=== PATIENT | female | born 1945 | race African-American/Black ===

== ENCOUNTER 2016-06-14 01:08 | Inpatient (IN) | payer OTHER ==
[~2016-06-14] VITALS: Ht 160 cm; Wt 105.7 kg
[~2016-06-14 01:08] MED LIST: AMLODIPINE BESY10 M1 PO; ASPIRIN EC81 M1 PO; FERROUS SULFAT325 M3 PO; HYDROCHLOROTHIA25 M1 PO; LISINOPRIL40 M1 PO; PLAQUENIL200 M1 PO; POTASSIUM CHLO20 ME2 PO; PREDNISONE5 M1 PO
[2016-06-14] MEDS ORDERED: MIRALAX17 G1 PO (11:10)
[2016-06-14] MEDS ORDERED: COLACE100 M1 PO (11:10)
[2016-06-14] MEDS ORDERED: DILAUDID2 M1 PO (11:10)
[2016-06-14] MEDS ORDERED: ELIQUIS2.5 M1 PO (11:10)
[2016-06-14] MEDS ORDERED: MS CONTIN15 M2 PO (11:10)
--- NOTE | 2016-06-14 11:16 | Patient Discharge Instructions ---
Discharge Instructions General Discharge Information You were seen/treated for: RIGHT KNEE PAIN You had these procedures: RIGHT TOTAL KNEE REPLACEMENT Watch for these problems: FEVER GREATER THAN 101.5, INCREASED SWELLING, REDNESS OR DRAINAGE FROM INCISION.iNCREASING PAIN OR INABILITY TO AMBULATE Do not soak the wound: No Daily wet to dry dressings: No No bath, but you may shower: Yes Other wound care: KEEP WOUND/ DRESSING ASHLEY Diet Continue normal diet: Yes Recommended Diet: Regular Activity Full Activity/No Limits: Yes (WEIGHT BEAR TOLERATED) Activity Self Limited: No Pounds, do NOT lift more than: 10 Activity Limited to: Weight bear as tolerated Acute Coronary Syndrome Inclusion Criteria At DC or during hospital stay patient has or had the following: ACS DIAGNOSIS No Discharge Core Measures Meds if any: Prescribed or Continued at Discharge Meds if any: NOT Prescribed or Continued at Discharge Congestive Heart Failure Inclusion Criteria At DC or during hospital stay patient has or had the following: CHF DIAGNOSIS No Discharge Core Measures Meds if any: Prescribed or Continued at Discharge Meds if any: NOT Prescribed or Continued at Discharge Cerebrovascular accident Inclusion Criteria At DC or during hospital stay patient has or had the following: CVA/TIA Diagnosis No Discharge Core Measures Meds if any: Prescribed or Continued at Discharge Meds if any: NOT Prescribed or Continued at Discharge Venous thromboembolism Inclusion Criteria VTE Diagnosis No VTE Type NONE VTE Confirmed by (Test) NONE Discharge Core Measures - Per Current guidelines, there needs to be overlap - treatment for the first 5 days of Warfarin therapy. - If discharged on Warfarin prior to 5 days of - overlap therapy, the patient will need to be - assessed for post discharge needs including - *Post discharge parental anticoagulation - *Warfarin and/or parental anticoagulation education - *Follow up date to check INR post discharge At least 5 days overlap therapy as Inpatient No Meds if any: Prescribed or Continued at Discharge Warfarin No Note: Overlap Therapy is Warfarin and Anticoagulant Meds if any: NOT Prescribed or Continued at Discharge
--- NOTE | 2016-06-14 11:26 | Admission Core Measures ---
Admission Meds I reviewed the following Meds: Current Medications Sig/Robbin Start time Last Medication Dose Stop Time Status Admin Acetaminophen 975 MG ONCE 06/14 0000 NR (Tylenol) 06/14 235 Amlodipine Besylate 10 MG DAILY 06/15 1000 AC (Norvasc) Ferrous Sulfate 325 MG DAILY 06/15 1000 AC (Feosol) Hydrochlorothiazide 25 MG DAILY 06/15 1000 AC (Hydrodiuril) Hydroxychloroquine 200 MG DAILY 06/15 1000 AC Sulfate (Plaquenil 200MG Tab) Lisinopril 40 MG DAILY 06/15 1000 AC (Prinivil) Oxycodone HCl 10 MG ONCE 06/14 0000 NR (Roxicodone) 06/14 235 Potassium Chloride 20 MEQ DAILY 06/15 1000 AC (K-Dur) Prednisone 5 MG DAILY 06/15 1000 AC Ropivacaine 500 ML ONCE ONE 06/14 0930 AC (NAROPIN) 06/16 0309 ON-Q Ball 1 BAG Acute Coronary Syndrome Inclusion Criteria ACS Diagnosis No Inpatient Core Measures LDL Reminder: If No, please order W/I first 24hr of stay Congestive Heart Failure Inclusion Criteria CHF Diagnosis No Cerebrovascular accident Inclusion Criteria CVA/TIA Diagnosis No Inpatient Core Measures Bedside Swallow Eval Reminder: If BSE failed, place ST order Antithrombotic Reminder: Order Antithrombotic Medication by end of day 2 Antithrombotic Reminder: Document Reason Antithrombotic Not ordered by end of day 2 AFIB/Flutter Reminder: If Present, add to problem list AFIB/Flutter Reminder: Order Anticoag Medication for pts with AFIB/Flutter Atherosclerosis Reminder: If Present, add to problem list LDL Reminder: If No, please order W/I first 24hr of stay PT Order Reminder: If No, please order Venous thromboembolism Inpatient Core Measures VTE Risk Factors: Age > 40, Surgery No [facility] VTE prophylaxis d/t No contraindications No VTE Pharm Prophylaxis d/t No contraindications Inclusion Criteria - Per Current guidelines, there needs to be overlap - treatment for the first 5 days of Warfarin therapy. - Parenteral Anticoagulation (IV or SC) needs to be - given along with Warfarin therapy. VTE Diagnosis No VTE Type NONE VTE Confirmed by (Test) NONE Problem List As ranked by this Provider includes Assessment & Plan 1. Unilateral primary osteoarthritis, right knee HOME MEDS Home Med List Amlodipine Besylate 10 MG TABLET 1 TAB PO DAILY HTN (Reported) Apixaban (Eliquis) 2.5 MG TABLET 1 TAB PO BID ANTICOAGULATION Aspirin (Ecotrin*) 81 MG TABLET.DR 1 TAB PO DAILY PROPHO (Reported) Docusate Sodium (Colace) 100 MG CAPSULE 1 TAB PO BID CONSTIPATION Ferrous Sulfate 325 MG (65 MG IRON) TABLET 1 TAB PO DAILY ANEMIA (Reported) Hydrochlorothiazide 25 MG TABLET 1 TAB PO DAILY HTN (Reported) Hydromorphone HCl (Dilaudid) 2 MG TABLET 1-2 TAB PO EVERY 4 HRS PRN NEEDED FOR PAIN Hydroxychlorquine (Plaquenil) 200 MG TABLET 1 TAB PO DAILY LUPUS (Reported) Lisinopril 40 MG TABLET 1 TAB PO DAILY HTN (Reported) Morphine Sulfate (Ms Contin) 15 MG TABLET.ER 1 TAB PO BID PRN NEEDED FOR PAIN Polyethylene Glycol 3350 (Miralax) 17 GRAM POWD.PACK 1 PAC PO DAILY CONSTIPATION Potassium Chloride 20 MEQ TAB.ER.PRT 1 TAB PO DAILY K REPLENISH (Reported) Prednisone 5 MG TABLET 1 TAB PO DAILY LUPUS (Reported)
--- NOTE | 2016-06-14 11:41 | Surgical Discharge Summary ---
Visit Information Visit Dates Admission Date: 06/14/16 Discharge Date: 06/18/16 History of Present Illness Chief Complaint: PT. PRSENTS FOR ELECTIVE R TKA FOR R KNEE PAIN Surgical History Pertinent Surgical History: non-contributory Review of Systems: SEE h&p Hospital Course Course Attending Physician: DOV ROCHE MD Primary Care Physician: ANJELICA LOYOLA Hospital Course: THIS IS 70 Y O FEMALE WHO HAS HX OF R KNEE OA AND PRESENTED FOR ELECTIVE R TKA. Pt was transferred to the general medical floor in stable condition postoperatively, but upon arrival to the floor, a rapid response was called for unresponsiveness. Pt was given narcan and cardiac workup revealed negative troponin, but reversible ischemia on stress testing. Cardiology and medicine consults were obtained. She was initially started on Eliquis for DVT prophylaxis , but experienced acute postop blood loss anemia, so Eliquis was discontinued and pt was transfused 2u of prbc's. Pt also had intermittent temps throughout her course, which eventually resolved. WBC remained stable. DVT ppx was restarted with ASA 325 BID. She had some serous drainage from her wound, but no purulence or signs of infection. On the day of discharge, she remains stable and asymptomatic from a cardiac standpoint. She was started on low dose B chuy therapy for cardioprotection. She is otherwise tolerating a diet and voiding well. Allergies: Coded Allergies: cefuroxime (From Ceftin) (Severe, HIVES 06/11/16) PER PRE-OP ORDER SHEET. -CG 06/11/16 Disposition Summary Disposition Principal Diagnosis: R KNEE UNILATERAL OA Additional Diagnosis: NONE Discharge Disposition: home health services Discharge Instructions General Discharge Information Code Status: Full Code Patient's Diet: REGULAR, ADVANCE TOLERATED Patient's Activity: AMBULATE and weight bear TOLERATED Follow-Up Instructions/Appts: F/U 6 WEEKS FROM SURGERY. Expect serous drainage. Please report any signs of purulence or erythema to MD. Medications at Discharge Discharge Medications: Stop taking the following medications: Aspirin (Ecotrin*) 81 MG TABLET.DR ORAL DAILY Continue taking these medications: Lisinopril (Lisinopril) 40 MG TABLET 1 Tablet ORAL DAILY Amlodipine Besylate (Amlodipine Besylate) 10 MG TABLET 1 Tablet ORAL DAILY Hydrochlorothiazide (Hydrochlorothiazide) 25 MG TABLET 1 Tablet ORAL DAILY Potassium Chloride (Potassium Chloride) 20 MEQ TAB.ER.PRT 1 Tablet ORAL DAILY Prednisone (Prednisone) 5 MG TABLET 1 Tablet ORAL DAILY Hydroxychlorquine (Plaquenil) 200 MG TABLET 1 Tablet ORAL DAILY Ferrous Sulfate (Ferrous Sulfate) 325 MG (65 MG IRON) TABLET 1 Tablet ORAL DAILY Start taking the following new medications: Aspirin (Aspirin*) 325 MG TABLET 1 Tablet ORAL TWICE DAILY Days = 30 No Refills Hydromorphone HCl (Dilaudid) 2 MG TABLET 1-2 Tablet ORAL EVERY 4 HRS as needed for NEEDED FOR PAIN Qty = 36 No Refills Morphine Sulfate (Ms Contin) 15 MG TABLET.ER 1 Tablet ORAL TWICE DAILY as needed for NEEDED FOR PAIN Qty = 6 No Refills Docusate Sodium (Colace) 100 MG CAPSULE 1 Tablet ORAL TWICE DAILY Qty = 14 No Refills Comments: DISCONTINUE IF DIARRHEA Polyethylene Glycol 3350 (Miralax) 17 GRAM POWD.PACK 1 Packet ORAL DAILY Qty = 7 No Refills Instructions: dissolve in water Metoprolol Tartrate (Metoprolol Tartrate) 25 MG TABLET 0.25 Tablet ORAL TWICE DAILY Qty = 15 No Refills Instructions: PLEASE TAKE 6.25 MG TWICE DAILY
[2016-06-14 14:00] VITALS: BP 114/72
--- NOTE | 2016-06-14 15:10 | PN- Orthopedic ---
Subjective Subjective: POST-OP NOTE: No complaints. Very sleepy still. Denies dizziness. No shortness of breath. No chest pains. Objective Vital Signs and I&Os pacu sheet reviewed (vss) Physical Exam: General - sleepy but arousable. comfortable. no acute distress. Lungs - clear bilaterally. no w/r/r. Cardiac - s1s2. reg. Abdomen - soft. nontender. - adams draining clear, yellow urine Extremities - warm bilaterally. no c/c/e. hemovac drain in place. dressing c/d/ i. on q in place. nvi Assessment/Plan Assessment/Plan This 70 year old female with hx htn and lupus is POD#0 s/p right total knee replacement advance diet as tolerated pain control as needed eliquis bid - dvt ppx PT eval monitor hemovac, and remove in am adams for strict i/o's, to be removed in am f/u AM labs julianne-operative ancef x 2 doses home meds ordered, including plaquenil and prednisone d/c planning in 1-2 days will d/w Core Measures/Miscellaneous Venous Thromboembolism VTE Risk Factors: Age > 40, Surgery VTE Contraindications: No Contraindications VTE Diagnosis: No VTE Type: NONE VTE Confirmed by (Test): NONE Beta Terrell Is Beta Terrell a Home Med? No Antibiotics Is Patient on Antibiotics? Yes If Yes: prophylaxis
[2016-06-14 15:30] VITALS: BP 102/68
--- NOTE | 2016-06-14 15:59 | Operative Report ---
Operative/Inv Procedure Report Surgery Date: 06/14/16 Name of Procedure: Right total knee replacement Pre-Operative Diagnosis: Primary right knee DJD Post-Operative Diagnosis: Same Estimated Blood Loss: 200 Surgeon/Client Services Manager: KALEY SADLER,DOV Davis Anesthesia: general endotracheal tube Operative/Procedure Note Note: Description of Procedure: The patient was taken to the operating room and positively identified. After induction of general anesthesia and administration of appropriate pre-operative antibiotics, the patient was positioned supine on the operating room table and all bony prominences were well padded. A well-padded pneumatic tourniquet was placed on the right upper thigh. After performing a surgical timeout, the right lower extremity was prepped and draped in the usual sterile fashion. After exsanguination with Esmarch the tourniquet was inflated to 250mm of mercury. A standard medial parapatellar approach was made to the knee. This was carried down through skin and subcutaneous tissue to the level of the fascia. Meticulous hemostasis was maintained with Bovie electrocautery. The extensor mechanism and patellar retinaculum were opened sharply and the patella was everted. The infrapatellar fat was resected in order to improve exposure. Osteophytes were trimmed from the patella and femoral condyles and the patella was re-everted and tucked laterally. A medial release was performed and the cruciate ligaments were resected. The tibia was then subluxed anteriorly. Utilizing the appropriate extra-medullary guide, the proximal tibia was trimmed perpendicular to the long axis of the tibial shaft. Attention was then turned to the femur. After opening the medullary canal, the distal femoral cut was made in 6 degrees of valgus utilizing the appropriate intra-medullary guide. The extension gap was checked and found to be appropriate. The femur was then sized and the remainder of the femoral cuts were made with a size 2 4-in-1 femoral cutting guide. The flexion gap was checked and found to be symmetric and appropriate. The knee was then trialed with a size 2 CR femoral component, a size 3 tibial component and a size 11 mm CS polyethylene insert. The patella was trimmed to accept an A 32 patella. This yielded excellent range of motion, stability and patellar tracking. All trial components were removed and the knee was copiously irrigated with sterile saline. All components were cemented into place with [place] Simplex cement. All the components were of the [place] Triathlon knee system of the above stated sizes. The knee was again irrigated after cementation. The extensor mechanism and patellar retinaculum were repaired using interrupted #1 vicryl suture. The skin was re-approximated with 2-0 vicryl and closed with hector. A sterile dressing was applied, the tourniquet was deflated, the patient was awakened and taken to the recovery room in satisfactory condition.
[2016-06-14 16:00] VITALS: BP 122/68
--- NOTE | 2016-06-14 16:00 | Event Note ---
Event Note Event Note: rapid response called for unreponsiveness. vitals: bp 102/58 p 58 o2 95% ra, blood sugar 268 she was given narcan 0.4 mg iv x 1, with some effect. ekg showed new t wave inversion. she had no complaints at the time. transferred to telemetry full set of labs ordered stat cardiology consult requested from calling for hospitalist co-management notified patient going to 109 as tele hold
[2016-06-14 17:52] LABS: ABSOLUTE BASOPHIL COUNT 0 /CUMM (0.0-0.2); ABSOLUTE EOSINOPHIL COUNT 0 /CUMM (0.0-0.7); ABSOLUTE GRANULOCYTE CT 9.5 /CUMM (1.4-6.5); ABSOLUTE LYMPH COUNT 0.3 /CUMM (1.2-3.4); ABSOLUTE MONOCYTE COUNT 0.2 /CUMM (0.10-0.60); BASOPHIL % 0 % (0.0-2.0); EOSINOPHIL % 0.1 % (0-5); HEMATOCRIT 30.1 % (37-47); MEAN CORPUSCULAR HGB 27.9 PG (27.0-31.0); MEAN CORPUSCULAR HGB CONC 32.1 G/DL (33.0-37.0); MEAN CORPUSCULAR VOLUME 86.8 FL (81.0-99.0); MEAN PLATELET VOLUME 8.7 FL (7.4-10.4); PLATELET COUNT 192 /CUMM (130-400); RBC DISTRIBUTION WIDTH 14.8 % (11.5-14.5); RED BLOOD CELL CT 3.47 /CUMM (4.20-5.40); WHITE BLOOD CELL COUNT 10.1 /CUMM (4.8-10.8)
[2016-06-14 18:00] VITALS: BP 105/64
--- NOTE | 2016-06-14 18:03 | Cons- Medical ---
General Information and HPI Consulting Request Date of Consult: 06/14/16 Requested By: DOV ROCHE MD Reason for Consult: Unresponsiveness Source of Information: patient, family History of Present Illness: Patient is a 70-year-old female with past medical history of lupus, sickle cell triat, hypertension right total knee replacement today 06/14/2016. She underwent general anesthesia and tolerated the procedure well. Postprocedure she was transferred to the general medicine floor[facility] a rapid response was called this afternoon at around 3 PM as the patient was found unresponsive in her bed. Vitals showed a temperature of 102/52,, saturation 96% on room air, pulse rate of 58 and blood sugar of 268. She was given Narcan 0.4 mg IVX 1 with improved responsiveness. Stat EKG showed some nonspecific T-wave inversions in lead V4(present on previous EKG from May 2016). As per the paperwork, patient had a systolic blood pressure of more than 200 during the procedure and she received 20 mg of IV hydralazine and 10 mg of IV metoprolol during the procedure. Patient got 2 mg of Dilaudid secondary to pain post surgery. Physical examination was positive for unresponsiveness to commands and sternal rub. Respiratory and cardiovascular examinations were unremarkable. Extremities showed a dressing over the right knee . Pulses were intact. Patient was transferred to the telemetry floor and stat labs and CAT scan of the head without contrast was ordered. Patient is currently maintained as a telemetry hold in ICU. Medical consult has been requested by the surgical team. Allergies/Medications Allergies: Coded Allergies: cefuroxime (From Ceftin) (Severe, HIVES 06/11/16) PER PRE-OP ORDER SHEET. -CG 06/11/16 Home Med List: Amlodipine Besylate 10 MG TABLET 1 TAB PO DAILY HTN (Reported) Apixaban (Eliquis) 2.5 MG TABLET 1 TAB PO BID ANTICOAGULATION Aspirin (Ecotrin*) 81 MG TABLET.DR 1 TAB PO DAILY PROPHO (Reported) Docusate Sodium (Colace) 100 MG CAPSULE 1 TAB PO BID CONSTIPATION Ferrous Sulfate 325 MG (65 MG IRON) TABLET 1 TAB PO DAILY ANEMIA (Reported) Hydrochlorothiazide 25 MG TABLET 1 TAB PO DAILY HTN (Reported) Hydromorphone HCl (Dilaudid) 2 MG TABLET 1-2 TAB PO EVERY 4 HRS PRN NEEDED FOR PAIN Hydroxychlorquine (Plaquenil) 200 MG TABLET 1 TAB PO DAILY LUPUS (Reported) Lisinopril 40 MG TABLET 1 TAB PO DAILY HTN (Reported) Morphine Sulfate (Ms Contin) 15 MG TABLET.ER 1 TAB PO BID PRN NEEDED FOR PAIN Polyethylene Glycol 3350 (Miralax) 17 GRAM POWD.PACK 1 PAC PO DAILY CONSTIPATION dissolve in water Potassium Chloride 20 MEQ TAB.ER.PRT 1 TAB PO DAILY K REPLENISH (Reported) Prednisone 5 MG TABLET 1 TAB PO DAILY LUPUS (Reported) Review of Systems Review of Systems Constitutional: Reports: malaise, weakness. EENTM: Reports: no symptoms. Cardiovascular: Reports: no symptoms. Respiratory: Reports: no symptoms. GI: Reports: no symptoms. Genitourinary: Reports: no symptoms. Musculoskeletal: Reports: joint pain (RT KNEE). Skin: Reports: no symptoms. Neurological/Psychological: Reports: no symptoms. Past History Medical History Blood Transfusion Hx: No Neurological: NONE EENT: NONE Cardiovascular: hypertension Respiratory: NONE Gastrointestinal: NONE Hepatic: NONE Renal: NONE Musculoskeletal: ARTHRITIS Psychiatric: NONE Endocrine: vitamin D deficiency Blood Disorders: DVT, LUPUS Cancer(s): NONE ENROLLMENT CLERK/Reproductive: NONE Surgical History Surgical History: non-contributory Psychosocial History Where Do You Live? Home Smoking Status: Unknown If Ever Smoked Exam & Diagnostic Data Last 24 Hrs of Vital Signs/I&O Vital Signs Date Time Temp Pulse Resp B/P Pulse O2 O2 Flow FiO2 Ox Delivery Rate 06/14 1530 50 16 102/68 90 Room Air 06/14 1400 97.1 56 16 114/72 95 Room Air Intake & Output 06/14 1600 06/14 0800 06/14 0000 Intake Total 2300 Output Total 1650 Balance 650 Intake, IV 2300 Intake, Oral 0 Number 0 Bowel Movements Output, 400 Drainage Output, Urine 1250 Physical Exam General Appearance: well developed/nourished, no apparent distress, alert, awake , anxious, comfortable Head: atraumatic, normal appearance, active bleeding Eyes: Bilateral: normal appearance, PERRL, EOMI. Ears, Nose, Throat: DRY MUCOUS MEMBRANES Neck: normal inspection, supple, full range of motion Respiratory: normal breath sounds, chest non-tender, no respiratory distress Cardiovascular: regular rate/rhythm, edema, gallop Peripheral Pulses: 2+ radial (R), 2+ radial (L) Extremities: normal inspection, normal capillary refill, normal range of motion, DRESSING OVER THE RIGHT LOWER EXTREMITY Neurologic/Psych: no motor/sensory deficits, awake, alert, oriented x 3 Last 24 Hrs of Labs/Stephen: Laboratory Tests 06/14/16 1735: Anion Gap 9, Estimated GFR > 60, BUN/Creatinine Ratio 12.2, Glucose 177 H, Phosphorus 3.7, Magnesium 1.6, Troponin I < 0.01, CBC w Diff NO MAN DIFF REQ, RBC 3.47 L, MCV 86.8, MCH 27.9, RDW 14.8 H, MPV 8.7, Gran % 94.5 H, Lymphocytes % 3.3 L, Monocytes % 2.1, Eosinophils % 0.1, Basophils % 0 L, Absolute Granulocytes 9.5 H, Absolute Lymphocytes 0.3 L, Absolute Monocytes 0.2, Absolute Eosinophils 0, Absolute Basophils 0, PUBS MCHC 32.1 L Assessment/Plan Assessment/Plan Patient is a 70-year-old female with past medical history of lupus, sickle cell triat, hypertension right total knee replacement today 06/14/2016. She underwent general anesthesia and tolerated the procedure well. Postprocedure she was transferred to the general medicine floor. Patient was found unresponsive on the [facility] floor, vitals revealed hypotension 102/58 bradycardia and T-wave inversions in lead V4 on EKG. She received Narcan 0.4 mg 1 IV with improvement in responsiveness. Patient got 2 mg of Dilaudid secondary to pain post surgery. She also received IV hydralazine 20 mg and IV metoprolol 10 mg during the procedure when her S2 systolic blood pressure was more than 200. Labs and CAT scan of the head pending EKG: SR, T wave inversions in V4( present in EKG from 05/2016) Assessment * Syncope/unresponsiveness * Status post right total knee replacement the 1 * ?T-wave inversions on EKG * Hypotension post procedure * Bradycardia * History of lupus and sickle cell trait Plan * Closely monitor the patient on telemetry * 3 sets of troponin and EKG to rule out ACS * Closely monitor for bradycardia. * Complete set of labs including CBCs and BEP * CT scan of the head without contrast to rule out acute intracranial pathology * Hold antihypertensives lisinopril, amlodipine and HCTZ for now. Try to keep her target blood pressure around 140/90. Can restart antihypertensives with holding parameters once the CAT scan results are backand stroke ruled out. * Hold aspirin and Eliquis for now * Continue patient's home medication Plaquenil and MS Contin * Continue prednisone daily * Cardiology consult with Dr. Sweeney * Echocardiogram * Continue pain control and surgical management per surgery/orthopedic * ALPS for DVT prophylaxsis Problem List: 1. Knee joint replacement status Consult Acknowledgment - Thank you for your consult request.
[2016-06-14 18:05] LABS: GRANULOCYTE % 94.5 % (42.2-75.2)
--- NOTE | 2016-06-14 19:09 | PN- Att Addend ---
Attending MD Review Statement Attending Statement Attending MD Statement: examined this patient, discuss w/resident/PA/STEAM SHOVEL OILER, agreed w/resident/PA/STEAM SHOVEL OILER, reviewed EMR data (avail) Attending Assessment/Plan: Laboratory Tests 06/14/16 1735: Anion Gap 9, Estimated GFR > 60, BUN/Creatinine Ratio 12.2, Glucose 177 H, Phosphorus 3.7, Magnesium 1.6, Troponin I < 0.01, CBC w Diff NO MAN DIFF REQ, RBC 3.47 L, MCV 86.8, MCH 27.9, RDW 14.8 H, MPV 8.7, Gran % 94.5 H, Lymphocytes % 3.3 L, Monocytes % 2.1, Eosinophils % 0.1, Basophils % 0 L, Absolute Granulocytes 9.5 H, Absolute Lymphocytes 0.3 L, Absolute Monocytes 0.2, Absolute Eosinophils 0, Absolute Basophils 0, PUBS MCHC 32.1 L Vital Signs Date Time Temp Pulse Resp B/P Pulse O2 O2 Flow FiO2 Ox Delivery Rate 06/14 1530 50 16 102/68 90 Room Air 06/14 1400 97.1 56 16 114/72 95 Room Air Patient seen and examined at bedside. Discussed with patient the care plan. Patient underwent right total knee arthroplasty today and had more than anticipated blood loss during the procedure and also during the OR patient had high blood pressure for which she was given 2 doses of IV metoprolol and also got 20 mg of IV hydralazine. Patient was then transferred out to the floor where she had a rapid response called for unresponsive episode. During the unresponsive episode patient was found to have a blood pressure of 102/52 and heart rate in 58. She was also found to have a blood sugar of 268. Patient got 2 mg of Dilaudid secondary to pain post surgery. Patient currently alert oriented 3. Currently getting echocardiogram. We will get the CT of the head to rule out any ischemia. And we will do serial neuro checks. We will also do serial troponins and monitor her on telemetry. We will also try to keep her blood pressure on the higher side around 140/90 and restart her home medicines withholding parameter. Patient did not take her blood pressure medication this morning prior to surgery which could have contributed to her high blood pressure intraoperatively and postoperatively. We will monitor her closely on telemetry and cardiology is being consulted. Dr. Sweeney from cardiology is to see the patient.
--- NOTE | 2016-06-14 19:53 | CT SCAN REPORT ---
EXAMINATION: CT HEAD WITHOUT CONTRAST CLINICAL INFORMATION: Weakness. Rule out stroke. COMPARISON: None TECHNIQUE: Contiguous axial imaging was performed from the skull base to vertex without intravenous administration of contrast. DLP: 529.16 mGy-cm FINDINGS: There is no evidence of acute intracranial hemorrhage or territorial infarction. No abnormal mass effect or midline shift is seen. Dang to white matter differentiation is well preserved. No extra-axial fluid collections are identified. There is mild parenchymal volume loss. The ventricles are normal in size. Mild to moderate chronic white matter microangiopathic changes are visible. The osseous structures and soft tissues are normal. The mastoid air cells are well aerated. There is a solitary opacified right ethmoid air cell which may be due to a retention cyst or early developing small mucocele. IMPRESSION: Mild to moderate chronic white matter microangiopathy. No acute territorial infarction. The possibility of a focal acute infarct cannot be ruled out on the basis of this study.
[2016-06-15] VITALS: BP 122/68
[2016-06-15 00:09] LABS: ABSOLUTE BASOPHIL COUNT 0 /CUMM (0.0-0.2); ABSOLUTE EOSINOPHIL COUNT 0 /CUMM (0.0-0.7); ABSOLUTE GRANULOCYTE CT 8.2 /CUMM (1.4-6.5); ABSOLUTE LYMPH COUNT 0.6 /CUMM (1.2-3.4); ABSOLUTE MONOCYTE COUNT 0.3 /CUMM (0.10-0.60); BASOPHIL % 0.1 % (0.0-2.0); EOSINOPHIL % 0.1 % (0-5); GRANULOCYTE % 89.9 % (42.2-75.2); MEAN CORPUSCULAR HGB 28.2 PG (27.0-31.0); MEAN CORPUSCULAR HGB CONC 33.1 G/DL (33.0-37.0); MEAN CORPUSCULAR VOLUME 85.1 FL (81.0-99.0); MEAN PLATELET VOLUME 9.2 FL (7.4-10.4); PLATELET COUNT 190 /CUMM (130-400); RBC DISTRIBUTION WIDTH 15.1 % (11.5-14.5); RED BLOOD CELL CT 3.28 /CUMM (4.20-5.40); WHITE BLOOD CELL COUNT 9.1 /CUMM (4.8-10.8)
--- NOTE | 2016-06-15 05:38 | PN- Orthopedic ---
Subjective Subjective: POD1. RR yesterday pm for ?unresponsiveness, now ok. denies cp/sob/f/c/n/v. hungry. denies confusion. no oob yet postop. Objective Vital Signs and I&Os Vital Signs Date Time Temp Pulse Resp B/P Pulse O2 O2 Flow FiO2 Ox Delivery Rate 06/15 0000 97.7 66 18 122/68 96 Room Air 06/14 1800 97.6 62 17 105/64 100 Room Air Room Air 06/14 1600 100 Room Air Room Air 06/14 1600 97.4 67 16 122/68 98 Room Air Room Air 06/14 1530 50 16 102/68 90 Room Air 06/14 1400 97.1 56 16 114/72 95 Room Air Intake & Output 06/15 0800 06/15 0000 06/14 1600 06/14 0800 06/14 0000 06/13 1600 Intake Total 1250 2300 Output Total 570 1650 Balance 680 650 Intake, IV 650 2300 Intake, Oral 600 0 Number 0 Bowel Movements Output, 120 400 Drainage Output, Urine 450 1250 LABS: pdg this am. Postop: hct 28(from 30), wbc 9 Physical Exam: GEN: NAD, A&Ox3 CARD: s1s2 rrr PULM: no audible wheeze ABD: soft nt EXT: rle dressig c/d/i, plantar/dorsiflexion intact/equal bl, +pedal pulses, calves soft nt. Results Last 48 Hours of Labs: Laboratory Tests 06/15 06/14 0500 2340 Chemistry Sodium (137 - 145 mmol/L) Pending 138 Potassium (3.5 - 5.1 mmol/L) Pending 4.4 Chloride (98 - 107 mmol/L) Pending 102 Carbon Dioxide (22 - 30 mmol/L) Pending 28 Anion Gap (5 - 16) Pending 8 BUN (7 - 17 mg/dL) Pending 13 Creatinine (0.5 - 1.0 mg/dL) Pending 0.8 Estimated GFR (>60 ml/min) > 60 BUN/Creatinine Ratio (7 - 25 %) Pending 16.3 Magnesium Pending Troponin I (< 0.11 ng/ml) Pending < 0.01 Hematology CBC w Diff Pending MAN DIFF ORDERED WBC (4.8 - 10.8 /CUMM) Pending 9.1 RBC (4.20 - 5.40 /CUMM) Pending 3.28 L Hgb (12.0 - 16.0 G/DL) Pending 9.3 L Hct (37 - 47 %) Pending 28.0 L MCV (81.0 - 99.0 FL) Pending 85.1 MCH (27.0 - 31.0 PG) Pending 28.2 RDW (11.5 - 14.5 %) Pending 15.1 H Plt Count (130 - 400 /CUMM) Pending 190 MPV (7.4 - 10.4 FL) Pending 9.2 Gran % (42.2 - 75.2 %) 89.9 H Lymphocytes % (20.5 - 51.1 %) 6.9 L Monocytes % (1.7 - 9.3 %) 3.0 Eosinophils % (0 - 5 %) 0.1 Basophils % (0.0 - 2.0 %) 0.1 Absolute Granulocytes (1.4 - 6.5 /CUMM) 8.2 H Absolute Lymphocytes (1.2 - 3.4 /CUMM) 0.6 L Absolute Monocytes (0.10 - 0.60 /CUMM) 0.3 Absolute Eosinophils (0.0 - 0.7 /CUMM) 0 Absolute Basophils (0.0 - 0.2 /CUMM) 0 Platelet Estimate (ADEQUATE) ADEQUATE Polychromasia 1+ Hypochromic-Microcytic 1+ PUBS MCHC (33.0 - 37.0 G/DL) Pending 33.1 06/14 06/14 06/14 1735 1730 1551 Chemistry Sodium (137 - 145 mmol/L) 140 Cancelled Potassium (3.5 - 5.1 mmol/L) 3.4 L Cancelled Chloride (98 - 107 mmol/L) 101 Cancelled Carbon Dioxide (22 - 30 mmol/L) 30 Cancelled Anion Gap (5 - 16) 9 Cancelled BUN (7 - 17 mg/dL) 11 Cancelled Creatinine (0.5 - 1.0 mg/dL) 0.9 Cancelled Estimated GFR (>60 ml/min) > 60 BUN/Creatinine Ratio (7 - 25 %) 12.2 Cancelled Glucose (65 - 99 mg/dL) 177 H Phosphorus (2.5 - 4.5 mg/dL) 3.7 Magnesium (1.6 - 2.3 mg/dL) 1.6 Troponin I (< 0.11 ng/ml) < 0.01 Cancelled Hematology CBC w Diff NO MAN DIFF REQ Cancelled WBC (4.8 - 10.8 /CUMM) 10.1 Cancelled RBC (4.20 - 5.40 /CUMM) 3.47 L Cancelled Hgb (12.0 - 16.0 G/DL) 9.7 L Cancelled Hct (37 - 47 %) 30.1 L Cancelled MCV (81.0 - 99.0 FL) 86.8 Cancelled MCH (27.0 - 31.0 PG) 27.9 Cancelled RDW (11.5 - 14.5 %) 14.8 H Cancelled Plt Count (130 - 400 /CUMM) 192 Cancelled MPV (7.4 - 10.4 FL) 8.7 Cancelled Gran % (42.2 - 75.2 %) 94.5 H Lymphocytes % (20.5 - 51.1 %) 3.3 L Monocytes % (1.7 - 9.3 %) 2.1 Eosinophils % (0 - 5 %) 0.1 Basophils % (0.0 - 2.0 %) 0 L Absolute Granulocytes (1.4 - 6.5 /CUMM) 9.5 H Absolute Lymphocytes (1.2 - 3.4 /CUMM) 0.3 L Absolute Monocytes (0.10 - 0.60 /CUMM) 0.2 Absolute Eosinophils (0.0 - 0.7 /CUMM) 0 Absolute Basophils (0.0 - 0.2 /CUMM) 0 PUBS MCHC (33.0 - 37.0 G/DL) 32.1 L Cancelled 06/14 1540 Chemistry Troponin I Cancelled Recent Imaging Studies: 06/14/16 CT head: no acute infarction Assessment/Plan Assessment/Plan 70yoF POD1 sp R TKR, tele hold in ICU following rapid response postop for unresponsiveness, workup neg other than lyte abnormalities- repleted. Currently stable. -am labs pdg - reg diet - HL IVF if labs ok and tolerating diet - prn pain meds - OOB as tolerated, PT - eliquis - ? fu cards input - DC planning - will dw attending Problem List: 1. Knee joint replacement status Core Measures/Miscellaneous Venous Thromboembolism VTE Risk Factors: Age > 40, Surgery VTE Contraindications: No Contraindications VTE Diagnosis: No VTE Type: NONE VTE Confirmed by (Test): NONE Beta Terrell Is Beta Terrell a Home Med? No Antibiotics Is Patient on Antibiotics? Yes If Yes: prophylaxis
[2016-06-15 05:39] LABS: ABSOLUTE BASOPHIL COUNT 0 /CUMM (0.0-0.2); ABSOLUTE EOSINOPHIL COUNT 0 /CUMM (0.0-0.7); ABSOLUTE GRANULOCYTE CT 7.1 /CUMM (1.4-6.5); ABSOLUTE MONOCYTE COUNT 0.6 /CUMM (0.10-0.60); BASOPHIL % 0.3 % (0.0-2.0); EOSINOPHIL % 0.1 % (0-5); GRANULOCYTE % 81.1 % (42.2-75.2); HEMATOCRIT 26.1 % (37-47); MEAN CORPUSCULAR HGB 28.3 PG (27.0-31.0); MEAN CORPUSCULAR HGB CONC 32.8 G/DL (33.0-37.0); MEAN CORPUSCULAR VOLUME 86.4 FL (81.0-99.0); MEAN PLATELET VOLUME 9.6 FL (7.4-10.4); PLATELET COUNT 177 /CUMM (130-400); RBC DISTRIBUTION WIDTH 15.2 % (11.5-14.5); RED BLOOD CELL CT 3.03 /CUMM (4.20-5.40); WHITE BLOOD CELL COUNT 8.7 /CUMM (4.8-10.8)
--- NOTE | 2016-06-15 06:44 | Event Note ---
Event Note Event Note: Results head CT noted last night. head CT results neg for acute territorial infarction; given change in mental status and sudden change in blood pressure pre/post op the patient may benefit from MRI of the head. The patient had episode of altered mental status and unresponsiveness yesterday. No history of WI or CVA in past. Denies any complaints including dizziness, lightheadedness, headache, palpitation. At the time of our interview, VSS, AAO Neck: Supple, no JVD, no carotid bruit, no lymphadenopathy. CV: RRR, no murmur. Abdomen: Normal bowel sounds, soft, NT, ND. Extremities: No lower extremity edema. Neurology: Normal speech, no facial droop, cranial nerves III-12 intact, [id number] intact, strength and motion, and reflexes intact. Patient passed bedside swallow evaluation test. Troponins remain negative. EKG remains the same. Given sudden change in patient's BP pre/post op and episode of unresponsiveness would recommend: * Formal swallow evaluation, speech, OT, PT * Continue with telemetry monitoring to rule out any arrhythmia. * Would start the patient on full dose aspirin, and a statin. * Would hold antihypertensives for permissive hypertension for the first 24-48 hours. * Would give IV fluids if blood pressure drops below 120s systolic. * Would order echocardiogram, MRI head,doppler carotid * Neurology consult * Cardiology consult Surgical team was notified. Sign out given to the morning team.
--- NOTE | 2016-06-15 07:15 | PN- Medicine Consult ---
Assessment/Plan Assessment/Plan Assessment: 70-year-old female with past medical history of lupus, sickle cell triat, hypertension right total knee replacement today 06/14/2016. She underwent general anesthesia and tolerated the procedure well. Postprocedure she was transferred to the general medicine floor. Status post the patient was found unresponsive with a blood pressure of 102/58, bradycardic, T-wave inversions on EKG before. Received 1 dose of Narcan 0.4 mg with a mild improvement in mentation. Patient had received 2 mg Dilaudid for analgesia, 20 mg IV hydralazine and 10 mg IV metoprolol for SBP 200 CT head: Mild to moderate chronic white matter microangiopathy. No acute territorial infarction. The possibility of a focal acute infarct cannot be ruled out on the basis of this study. Problem list: 1. Syncope 2. Iatrogenic-induced hypotension 3. Bradycardia 4. History of lupus and sickle cell trait Plan: 1. Syncope likely secondary to iatrogenic-induced hypotension * Was likely secondary to profound hypotension the setting of analgesia and preceding IV hydralazine * Blood pressure remained stable at this time * Continue to monitor. If recurrence of hypotension, consider stress dose with Solu-Medrol 2. Bradycardia * EKG NSR, nonspecific T-wave changes * On overnight cardiac telemetry monitoring patient did have one episode of 3 beat run * Electrolytes within normal limits * Resolved at this time. Continue to monitor 4. History of lupus and sickle cell trait * Continue her home medications * Continuing prednisone 5mg daily Problem List: 1. Unilateral primary osteoarthritis, right knee 2. Bradycardia 3. Hypotension Subjective Subjective: Interval history: This morning Mrs. Mesa denies being in any discomfort at this time. She denies any headache, blurred vision, chest pain, palpitation, shortness of breath, nausea, abdominal pain, fevers or chills at this time. Review of Systems Constitutional: Reports: see HPI. EENTM: Reports: no symptoms. Cardiovascular: Reports: no symptoms. Respiratory: Reports: no symptoms. Gastrointestinal: Reports: no symptoms. Musculoskeletal: Reports: see HPI. Objective Last 24 Hrs of Vital Signs/I&O Vital Signs Date Time Temp Pulse Resp B/P Pulse O2 O2 Flow FiO2 Ox Delivery Rate 06/15 1034 84 138/78 06/15 0800 99.6 67 18 130/78 97 Room Air 04/11 0000 97.7 66 18 122/68 96 Room Air 06/14 1800 97.6 62 17 105/64 100 Room Air Room Air 06/14 1600 100 Room Air Room Air 06/14 1600 97.4 67 16 122/68 98 Room Air Room Air 06/14 1530 50 16 102/68 90 Room Air Intake & Output 06/15 1600 06/15 0800 06/15 0000 Intake Total 1010 1250 Output Total 850 570 Balance 160 680 Intake, IV 650 650 Intake, Oral 360 600 Output, 100 120 Drainage Output, Urine 750 450 Physical Exam General Appearance: alert, comfortable Head: normal appearance Cardiovascular: regular rate/rhythm Respiratory: normal breath sounds, no respiratory distress, lungs clear Abdomen: normal bowel sounds, soft, non-tender Extremities: Right knee wrapped in a clean HOMAR bandage, no active bleeding at this time Current Medications: Current Medications Sig/Robbin Start time Last Medication Dose Route Stop Time Status Admin Acetaminophen 650 MG .STK-MED ONE 06/15 0504 DC PO 06/15 0505 Acetaminophen 650 MG Q4P PRN 06/14 1415 AC 06/15 PO 0505 Amlodipine Besylate 10 MG DAILY 06/15 1000 DC PO Amlodipine Besylate 10 MG DAILY 06/15 1000 DC PO Apixaban 2.5 MG BID 06/15 1000 AC 06/15 PO 1032 Benzocaine/Menthol 1 CARY Q2P PRN 06/14 2145 AC 06/14 PO 2356 Cefazolin Sodium 2 GM IQ8 06/14 1600 DC 06/14 N/A 1 UNIT IV 06/15 0029 2355 Dextrose/Sodium 1,000 ML .[id number] 06/14 1415 DC 06/14 Chloride IV 2355 Docusate Sodium 100 MG BID 06/14 2200 AC 06/15 PO 1032 Ferrous Sulfate 325 MG DAILY 06/15 1000 DC PO Ferrous Sulfate 325 MG DAILY 06/15 1000 AC 06/15 PO 1031 Hydrochlorothiazide 25 MG DAILY 06/15 1000 DC PO Hydrochlorothiazide 25 MG DAILY 06/15 1000 DC PO Hydromorphone HCl 2 MG Q4P PRN 06/14 1415 AC PO Hydromorphone HCl 4 MG Q4P PRN 06/14 1415 AC PO Hydroxychloroquine 200 MG DAILY 06/15 1000 DC Sulfate PO Hydroxychloroquine 200 MG DAILY 06/15 1000 AC 06/15 Sulfate PO 1032 Ketorolac 15 MG Q8P PRN 06/14 1415 AC 06/15 Tromethamine IV 06/17 1407 1403 Lisinopril 40 MG DAILY 06/15 1000 DC PO Lisinopril 40 MG DAILY 06/15 1000 AC 06/15 PO 1034 Magnesium Sulfate 2 GM ONE TIME ONE 06/14 1845 CAN IV 06/14 1846 Magnesium Sulfate 1 GM Q2H 06/14 1845 DC 06/14 Dextrose/Water 100 ML IV 06/14 2244 2134 Magnesium Sulfate 1 GM ONCE ONE 06/14 1830 CAN Dextrose/Water 100 ML IV 06/14 2229 Morphine Sulfate 2 MG Q2P PRN 06/14 1415 AC 06/15 IV 0315 Naloxone HCl 0.4 MG ONCE ONE 06/14 1600 CAN IV 06/14 1601 Naloxone HCl 0.4 MG ONCE ONE 06/14 1600 DC IV 06/14 1601 Naloxone HCl 0.4 MG ONCE ONE 06/14 1545 DC 06/14 IV 06/14 1546 1545 Omeprazole 40 MG DAILY AC 06/15 0700 AC PO Ondansetron HCl 4 MG Q6P PRN 06/14 1415 AC 06/14 IV 1448 Polyethylene Glycol 17 GM DAILY 06/15 1000 AC PO Potassium Chloride 20 MEQ DAILY 06/15 1000 DC PO Potassium Chloride 20 MEQ DAILY 06/15 1000 AC 06/15 PO 1031 Potassium Chloride 10 MEQ Q1H 06/14 1845 DC 06/14 IV 06/14 1946 2134 Potassium Chloride 40 MEQ ONCE ONE 06/14 1845 DC PO 06/14 1846 Potassium Chloride 10 MEQ ONCE ONE 06/14 1830 CAN IV 06/14 1831 Potassium Chloride 10 MEQ ONCE ONE 06/14 1830 CAN IV 06/14 1831 Potassium Chloride 40 MEQ ONCE ONE 06/14 1830 CAN PO 06/14 1831 Prednisone 5 MG DAILY 06/15 1000 DC PO Prednisone 5 MG DAILY 06/15 1000 AC 06/15 PO 1031 Promethazine HCl 12.5 MG Q6P PRN 06/14 1415 AC IV 06/21 1044 Ropivacaine 500 ML ONCE ONE 06/14 0930 AC 06/14 ON-Q Ball 1 BAG INJ 06/16 0309 1416 Sodium Chloride 1,000 ML Q13H 06/15 0745 DC IV Results Last 24 Hrs Lab/Stephen Results: Laboratory Tests 06/15/16 0500: Anion Gap 10, Estimated GFR > 60, BUN/Creatinine Ratio 12.2, Magnesium 2.0, Troponin I < 0.01, CBC w Diff NO MAN DIFF REQ, RBC 3.03 L, MCV 86.4, MCH 28.3, RDW 15.2 H, MPV 9.6, Gran % 81.1 H, Lymphocytes % 11.2 L, Monocytes % 7.3, Eosinophils % 0.1, Basophils % 0.3, Absolute Granulocytes 7.1 H, Absolute Lymphocytes 1.0 L, Absolute Monocytes 0.6, Absolute Eosinophils 0, Absolute Basophils 0, PUBS MCHC 32.8 L 06/14/16 2340: Anion Gap 8, Estimated GFR > 60, BUN/Creatinine Ratio 16.3, Troponin I < 0.01, CBC w Diff MAN DIFF ORDERED, RBC 3.28 L, MCV 85.1, MCH 28.2, RDW 15.1 H, MPV 9.2, Gran % 89.9 H, Lymphocytes % 6.9 L, Monocytes % 3.0, Eosinophils % 0.1, Basophils % 0.1, Absolute Granulocytes 8.2 H, Absolute Lymphocytes 0.6 L, Absolute Monocytes 0.3, Absolute Eosinophils 0, Absolute Basophils 0, Platelet Estimate ADEQUATE, Polychromasia 1+, Hypochromic-Microcytic 1+, PUBS MCHC 33.1 06/14/16 1735: Anion Gap 9, Estimated GFR > 60, BUN/Creatinine Ratio 12.2, Glucose 177 H, Phosphorus 3.7, Magnesium 1.6, Troponin I < 0.01, CBC w Diff NO MAN DIFF REQ, RBC 3.47 L, MCV 86.8, MCH 27.9, RDW 14.8 H, MPV 8.7, Gran % 94.5 H, Lymphocytes % 3.3 L, Monocytes % 2.1, Eosinophils % 0.1, Basophils % 0 L, Absolute Granulocytes 9.5 H, Absolute Lymphocytes 0.3 L, Absolute Monocytes 0.2, Absolute Eosinophils 0, Absolute Basophils 0, PUBS MCHC 32.1 L 06/14/16 1730: CBC w Diff Cancelled, WBC Cancelled, RBC Cancelled, Hgb Cancelled, Hct Cancelled , MCV Cancelled, MCH Cancelled, RDW Cancelled, Plt Count Cancelled, MPV Cancelled, PUBS MCHC Cancelled 06/14/16 1551: Sodium Cancelled, Potassium Cancelled, Chloride Cancelled, Carbon Dioxide Cancelled, Anion Gap Cancelled, BUN Cancelled, Creatinine Cancelled, BUN/ Creatinine Ratio Cancelled, Troponin I Cancelled 06/14/16 1540: Troponin I Cancelled Microbiology 06/14 1600 UPPER RESP: Surveillance Culture - RECD 06/14 1600 GI: Surveillance Culture - RECD
[2016-06-15 08:00] VITALS: BP 130/78
--- NOTE | 2016-06-15 08:26 | Cons- Cardiology ---
See Addendum MIREYA LARA MD 06/15/16 0825: General Information and HPI Consulting Request Date of Consult: 06/15/16 Requested By: DOV ROCHE MD Reason for Consult: Post-op hypotension Source of Information: patient Exam Limitations: no limitations History of Present Illness: Mrs. Mesa is a 70-year-old lady with a medical history of hypertension and lupus diagnosed 3 years ago currently on prednisone and hydroxychloroquine. She underwent a right total knee replacement yesterday. Intraoperatively her blood pressure spiked to greater than 220, she received pushes of IV hydralazine and Lopressor. She also had an intraoperative blood loss of roughly 400 mL. Postoperatively she was found to be hypotensive. A rapid response was called on the floor. She was given Narcan with mild relief in her mentation for the medical record. She was transferred to the ICU was a telemetry hold secondary to the fact that her EKG had some lateral lead T-wave inversions have since resolved. A cardiology consultation was requested for postop hypotension. I saw and evaluated the patient, she is resting comfortably in hospital bed. At present she denies any chest pain, shortness of breath, nausea, vomiting, diarrhea. Her only complaint is postoperative right knee pain. She had a 3 beat run this morning around 6:30 AM. Denies any personal history of coronary artery disease, myocardial infarction or short. States that she does have a family history of coronary artery disease and a couple years ago her older brother underwent a CABG. Allergies/Medications Allergies: Coded Allergies: cefuroxime (From Ceftin) (Severe, HIVES 06/11/16) PER PRE-OP ORDER SHEET. -CG 06/11/16 Home Med List: Amlodipine Besylate 10 MG TABLET 1 TAB PO DAILY HTN (Reported) Apixaban (Eliquis) 2.5 MG TABLET 1 TAB PO BID ANTICOAGULATION Aspirin (Ecotrin*) 81 MG TABLET.DR 1 TAB PO DAILY PROPHO (Reported) Docusate Sodium (Colace) 100 MG CAPSULE 1 TAB PO BID CONSTIPATION Ferrous Sulfate 325 MG (65 MG IRON) TABLET 1 TAB PO DAILY ANEMIA (Reported) Hydrochlorothiazide 25 MG TABLET 1 TAB PO DAILY HTN (Reported) Hydromorphone HCl (Dilaudid) 2 MG TABLET 1-2 TAB PO EVERY 4 HRS PRN NEEDED FOR PAIN Hydroxychlorquine (Plaquenil) 200 MG TABLET 1 TAB PO DAILY LUPUS (Reported) Lisinopril 40 MG TABLET 1 TAB PO DAILY HTN (Reported) Morphine Sulfate (Ms Contin) 15 MG TABLET.ER 1 TAB PO BID PRN NEEDED FOR PAIN Polyethylene Glycol 3350 (Miralax) 17 GRAM POWD.PACK 1 PAC PO DAILY CONSTIPATION dissolve in water Potassium Chloride 20 MEQ TAB.ER.PRT 1 TAB PO DAILY K REPLENISH (Reported) Prednisone 5 MG TABLET 1 TAB PO DAILY LUPUS (Reported) Review of Systems Review of Systems Constitutional: Reports: see HPI. Past History Medical History Blood Transfusion Hx: No Neurological: NONE EENT: NONE Cardiovascular: hypertension Respiratory: NONE Gastrointestinal: NONE Hepatic: NONE Renal: NONE Musculoskeletal: ARTHRITIS Psychiatric: NONE Endocrine: vitamin D deficiency Blood Disorders: DVT, LUPUS Cancer(s): NONE GROUP MANAGING DIRECTOR/Reproductive: NONE Surgical History Surgical History: non-contributory Psychosocial History Where Do You Live? Home Smoking Status: Unknown If Ever Smoked Exam & Diagnostic Data Vital Signs and I&O Vital Signs Date Time Temp Pulse Resp B/P Pulse O2 O2 Flow FiO2 Ox Delivery Rate 06/15 0000 97.7 66 18 122/68 96 Room Air 06/14 1800 97.6 62 17 105/64 100 Room Air Room Air 06/14 1600 100 Room Air Room Air 06/14 1600 97.4 67 16 122/68 98 Room Air Room Air 06/14 1530 50 16 102/68 90 Room Air 06/14 1400 97.1 56 16 114/72 95 Room Air Intake & Output 06/15 1600 11 0800 06/15 0000 06/14 1600 06/14 0800 06/14 0000 Intake Total 1010 1250 2300 Output Total 778 708 4919 Balance 160 680 650 Intake, IV 412 576 7941 Intake, Oral 360 600 0 Number 0 Bowel Movements Output, 100 120 400 Drainage Output, Urine 634 317 5566 Physical Exam General Appearance: well developed/nourished, no apparent distress, alert, awake , comfortable Eyes: Bilateral: normal appearance, PERRL, EOMI. Ears, Nose, Throat: normal pharynx, normal ENT inspection, hearing grossly normal Respiratory: normal breath sounds, chest non-tender, no respiratory distress Cardiovascular: regular rate/rhythm Gastrointestinal: normal bowel sounds, soft, non-tender, no organomegaly Back: normal inspection, normal range of motion Extremities: Right knee in dry sterile dressing Labs/Stephen Results: Laboratory Tests 06/15 06/14 0500 2340 Chemistry Sodium (137 - 145 mmol/L) 139 138 Potassium (3.5 - 5.1 mmol/L) 3.9 4.4 Chloride (98 - 107 mmol/L) 102 102 Carbon Dioxide (22 - 30 mmol/L) 27 28 Anion Gap (5 - 16) 10 8 BUN (7 - 17 mg/dL) 11 13 Creatinine (0.5 - 1.0 mg/dL) 0.9 0.8 Estimated GFR (>60 ml/min) > 60 > 60 BUN/Creatinine Ratio (7 - 25 %) 12.2 16.3 Magnesium (1.6 - 2.3 mg/dL) 2.0 Troponin I (< 0.11 ng/ml) < 0.01 < 0.01 Hematology CBC w Diff NO MAN DIFF REQ MAN DIFF ORDERED WBC (4.8 - 10.8 /CUMM) 8.7 9.1 RBC (4.20 - 5.40 /CUMM) 3.03 L 3.28 L Hgb (12.0 - 16.0 G/DL) 8.6 L 9.3 L Hct (37 - 47 %) 26.1 L 28.0 L MCV (81.0 - 99.0 FL) 86.4 85.1 MCH (27.0 - 31.0 PG) 28.3 28.2 RDW (11.5 - 14.5 %) 15.2 H 15.1 H Plt Count (130 - 400 /CUMM) 177 190 MPV (7.4 - 10.4 FL) 9.6 9.2 Gran % (42.2 - 75.2 %) 81.1 H 89.9 H Lymphocytes % (20.5 - 51.1 %) 11.2 L 6.9 L Monocytes % (1.7 - 9.3 %) 7.3 3.0 Eosinophils % (0 - 5 %) 0.1 0.1 Basophils % (0.0 - 2.0 %) 0.3 0.1 Absolute Granulocytes (1.4 - 6.5 /CUMM) 7.1 H 8.2 H Absolute Lymphocytes (1.2 - 3.4 /CUMM) 1.0 L 0.6 L Absolute Monocytes (0.10 - 0.60 /CUMM) 0.6 0.3 Absolute Eosinophils (0.0 - 0.7 /CUMM) 0 0 Absolute Basophils (0.0 - 0.2 /CUMM) 0 0 Platelet Estimate (ADEQUATE) ADEQUATE Polychromasia 1+ Hypochromic-Microcytic 1+ PUBS MCHC (33.0 - 37.0 G/DL) 32.8 L 33.1 06/14 06/14 06/14 1735 1730 1551 Chemistry Sodium (137 - 145 mmol/L) 140 Cancelled Potassium (3.5 - 5.1 mmol/L) 3.4 L Cancelled Chloride (98 - 107 mmol/L) 101 Cancelled Carbon Dioxide (22 - 30 mmol/L) 30 Cancelled Anion Gap (5 - 16) 9 Cancelled BUN (7 - 17 mg/dL) 11 Cancelled Creatinine (0.5 - 1.0 mg/dL) 0.9 Cancelled Estimated GFR (>60 ml/min) > 60 BUN/Creatinine Ratio (7 - 25 %) 12.2 Cancelled Glucose (65 - 99 mg/dL) 177 H Phosphorus (2.5 - 4.5 mg/dL) 3.7 Magnesium (1.6 - 2.3 mg/dL) 1.6 Troponin I (< 0.11 ng/ml) < 0.01 Cancelled Hematology CBC w Diff NO MAN DIFF REQ Cancelled WBC (4.8 - 10.8 /CUMM) 10.1 Cancelled RBC (4.20 - 5.40 /CUMM) 3.47 L Cancelled Hgb (12.0 - 16.0 G/DL) 9.7 L Cancelled Hct (37 - 47 %) 30.1 L Cancelled MCV (81.0 - 99.0 FL) 86.8 Cancelled MCH (27.0 - 31.0 PG) 27.9 Cancelled RDW (11.5 - 14.5 %) 14.8 H Cancelled Plt Count (130 - 400 /CUMM) 192 Cancelled MPV (7.4 - 10.4 FL) 8.7 Cancelled Gran % (42.2 - 75.2 %) 94.5 H Lymphocytes % (20.5 - 51.1 %) 3.3 L Monocytes % (1.7 - 9.3 %) 2.1 Eosinophils % (0 - 5 %) 0.1 Basophils % (0.0 - 2.0 %) 0 L Absolute Granulocytes (1.4 - 6.5 /CUMM) 9.5 H Absolute Lymphocytes (1.2 - 3.4 /CUMM) 0.3 L Absolute Monocytes (0.10 - 0.60 /CUMM) 0.2 Absolute Eosinophils (0.0 - 0.7 /CUMM) 0 Absolute Basophils (0.0 - 0.2 /CUMM) 0 PUBS MCHC (33.0 - 37.0 G/DL) 32.1 L Cancelled 06/14 1540 Chemistry Troponin I Cancelled Diagnostic Data EKG Results Rate 68, KS 164, QRS 82, QTC 451 Sinus rhythm, borderline T-wave flattening in leads 3, aVF, aVL Other Results PATIENT: DONAL MESA PRESENT AGE: 70 PATIENT ACCOUNT NO: [id number] : 47 LOCATION: [facility] ORDERING PHYSICIAN: DOM ROMAN MD SERVICE DATE: 06/14/16 EXAM TYPE: CAT - CT HEAD WO IV CONTRAST EXAMINATION: CT HEAD WITHOUT CONTRAST CLINICAL INFORMATION: Weakness. Rule out stroke. COMPARISON: None TECHNIQUE: Contiguous axial imaging was performed from the skull base to vertex without intravenous administration of contrast. DLP: 529.16 mGy-cm FINDINGS: There is no evidence of acute intracranial hemorrhage or territorial infarction. No abnormal mass effect or midline shift is seen. Dang to white matter differentiation is well preserved. No extra-axial fluid collections are identified. There is mild parenchymal volume loss. The ventricles are normal in size. Mild to moderate chronic white matter microangiopathic changes are visible. The osseous structures and soft tissues are normal. The mastoid air cells are well aerated. There is a solitary opacified right ethmoid air cell which may be due to a retention cyst or early developing small mucocele. IMPRESSION: Mild to moderate chronic white matter microangiopathy. No acute territorial infarction. The possibility of a focal acute infarct cannot be ruled out on the basis of this study. DICTATED BY: CARLOS BAINS MD DATE/TIME DICTATED:06/14/161947 [employer] MEDIA SPECIALIST:ALYSSA DATE/TIME TRANSCRIBED:06/14/161947 CONFIDENTIAL, DO NOT COPY WITHOUT APPROPRIATE AUTHORIZATION. <Electronically signed in Other Vendor System> SIGNED BY: CARLOS BAINS MD 1950 Assessment/Plan Assessment/Plan Assessment- 1. Post op hypertension; multifactorial secondary to intraoperative blood loss and subsequently receiving IV hydralazine and beta chuy pushes 2. Non specific borderline lateral T-wave flattening 3. Lupus 4. HTN 5. Negative troponins X 3 Plan- - Continue telemetry monitoring for now - DC IV fluids as patient is tolerating diet by mouth, her blood pressure this morning was 130 systolic - Start her home dose of lisinopril, if blood pressure remains persistently high can then reintroduce Norvasc and hydrochlorothiazide at home doses - Echocardiogram has been done, it will be read later on today - EKG did have some lateral lead T-wave changes - NPO after midnight for presantine stress test in the morning Consult Acknowledgment - Thank you for your consult request. KYLIE SADLER,KAYCEE Maldonado 06/15/16 2013: Assessment/Plan Assessment/Plan Attending Addendum: The patient was seen and examined by me and all available data, including ECGs, were personally reviewed by myself. The case was discussed with the patient and her as well as the medical housestaff. I agree with the plan as outlined above. Further plans after the PTN nuclear stress test results are reviewed. Consult Acknowledgment - Thank you for your consult request.
--- NOTE | 2016-06-15 13:00 | PN- Att Addend ---
See Addendum Attending Addendum Attending Brief Note Patient seen and examined this morning, was feeling slightly better. She denies feeling any further dizziness. Denies any chest pain or shortness of breath. No acute issues overnight. Vital Signs Date Time Temp Pulse Resp B/P Pulse O2 O2 Flow FiO2 Ox Delivery Rate 06/15 1034 84 138/78 06/15 0800 99.6 67 18 130/78 97 Room Air 06/15 0000 97.7 66 18 122/68 96 Room Air 06/14 1800 97.6 62 17 105/64 100 Room Air Room Air 06/14 1600 100 Room Air Room Air 06/14 1600 97.4 67 16 122/68 98 Room Air Room Air 06/14 1530 50 16 102/68 90 Room Air 06/14 1400 97.1 56 16 114/72 95 Room Air on exam; aox3, nad. cv; s1, s2, rrr resp; clear abd; soft, nt, bs+ ext; no edema. right knee is warpped in angel wrap. Neuro: Nonfocal. Laboratory Tests 06/15 06/14 0500 2340 Chemistry Sodium (137 - 145 mmol/L) 139 138 Potassium (3.5 - 5.1 mmol/L) 3.9 4.4 Chloride (98 - 107 mmol/L) 102 102 Carbon Dioxide (22 - 30 mmol/L) 27 28 Anion Gap (5 - 16) 10 8 BUN (7 - 17 mg/dL) 11 13 Creatinine (0.5 - 1.0 mg/dL) 0.9 0.8 Estimated GFR (>60 ml/min) > 60 > 60 BUN/Creatinine Ratio (7 - 25 %) 12.2 16.3 Magnesium (1.6 - 2.3 mg/dL) 2.0 Troponin I (< 0.11 ng/ml) < 0.01 < 0.01 Hematology CBC w Diff NO MAN DIFF REQ MAN DIFF ORDERED WBC (4.8 - 10.8 /CUMM) 8.7 9.1 RBC (4.20 - 5.40 /CUMM) 3.03 L 3.28 L Hgb (12.0 - 16.0 G/DL) 8.6 L 9.3 L Hct (37 - 47 %) 26.1 L 28.0 L MCV (81.0 - 99.0 FL) 86.4 85.1 MCH (27.0 - 31.0 PG) 28.3 28.2 RDW (11.5 - 14.5 %) 15.2 H 15.1 H Plt Count (130 - 400 /CUMM) 177 190 MPV (7.4 - 10.4 FL) 9.6 9.2 Gran % (42.2 - 75.2 %) 81.1 H 89.9 H Lymphocytes % (20.5 - 51.1 %) 11.2 L 6.9 L Monocytes % (1.7 - 9.3 %) 7.3 3.0 Eosinophils % (0 - 5 %) 0.1 0.1 Basophils % (0.0 - 2.0 %) 0.3 0.1 Absolute Granulocytes (1.4 - 6.5 /CUMM) 7.1 H 8.2 H Absolute Lymphocytes (1.2 - 3.4 /CUMM) 1.0 L 0.6 L Absolute Monocytes (0.10 - 0.60 /CUMM) 0.6 0.3 Absolute Eosinophils (0.0 - 0.7 /CUMM) 0 0 Absolute Basophils (0.0 - 0.2 /CUMM) 0 0 Platelet Estimate (ADEQUATE) ADEQUATE Polychromasia 1+ Hypochromic-Microcytic 1+ PUBS MCHC (33.0 - 37.0 G/DL) 32.8 L 33.1 06/14 06/14 06/14 1735 1730 1551 Chemistry Sodium (137 - 145 mmol/L) 140 Cancelled Potassium (3.5 - 5.1 mmol/L) 3.4 L Cancelled Chloride (98 - 107 mmol/L) 101 Cancelled Carbon Dioxide (22 - 30 mmol/L) 30 Cancelled Anion Gap (5 - 16) 9 Cancelled BUN (7 - 17 mg/dL) 11 Cancelled Creatinine (0.5 - 1.0 mg/dL) 0.9 Cancelled Estimated GFR (>60 ml/min) > 60 BUN/Creatinine Ratio (7 - 25 %) 12.2 Cancelled Glucose (65 - 99 mg/dL) 177 H Phosphorus (2.5 - 4.5 mg/dL) 3.7 Magnesium (1.6 - 2.3 mg/dL) 1.6 Troponin I (< 0.11 ng/ml) < 0.01 Cancelled Hematology CBC w Diff NO MAN DIFF REQ Cancelled WBC (4.8 - 10.8 /CUMM) 10.1 Cancelled RBC (4.20 - 5.40 /CUMM) 3.47 L Cancelled Hgb (12.0 - 16.0 G/DL) 9.7 L Cancelled Hct (37 - 47 %) 30.1 L Cancelled MCV (81.0 - 99.0 FL) 86.8 Cancelled MCH (27.0 - 31.0 PG) 27.9 Cancelled RDW (11.5 - 14.5 %) 14.8 H Cancelled Plt Count (130 - 400 /CUMM) 192 Cancelled MPV (7.4 - 10.4 FL) 8.7 Cancelled Gran % (42.2 - 75.2 %) 94.5 H Lymphocytes % (20.5 - 51.1 %) 3.3 L Monocytes % (1.7 - 9.3 %) 2.1 Eosinophils % (0 - 5 %) 0.1 Basophils % (0.0 - 2.0 %) 0 L Absolute Granulocytes (1.4 - 6.5 /CUMM) 9.5 H Absolute Lymphocytes (1.2 - 3.4 /CUMM) 0.3 L Absolute Monocytes (0.10 - 0.60 /CUMM) 0.2 Absolute Eosinophils (0.0 - 0.7 /CUMM) 0 Absolute Basophils (0.0 - 0.2 /CUMM) 0 PUBS MCHC (33.0 - 37.0 G/DL) 32.1 L Cancelled 06/14 1540 Chemistry Troponin I Cancelled Assessment and recommendations: 70-year-old female with past medical history significant for lupus, sickle cell triat, hypertension status post right knee replacement postop day #1 today. She was transferred to ICU yesterday as a telemetry hold secondary to unresponsive episode. Her blood pressure was also not controlled. CT head was negative. EKG showed some nonspecific T-wave changes. Postoperative care as per Ortho. Blood pressure this morning is much better. Patient has been resumed on her lisinopril. Patient has been seen by cardiology. Her troponins 3 is negative. Please clarify with cardiology about the plan. Patient is now awake and talking and denies any weakness or any speech difficulty. Neuro exam is negative. She has been resumed back on her prednisone. Continue other current medications. DVT prophylaxis: I will defer this to orthopedic.
[2016-06-15 16:00] VITALS: BP 124/76
--- NOTE | 2016-06-15 17:02 | ECHOCARDIOGRAM REPORT ---
DONAL BRAY Age: 70 : 1945 Gender: F Exam Date: 06/14/2016 18:47 Exam Location: [facility] Ht (in): 63 Wt (lb): 233 BSA: 2.22 BP: 102 / 68 Ordering Physician: ELVIA CALHOUN MD Referring Physician: Sonia Sweeney MD Technologist: Madai Vazquez KEYANNA Room Number: 109 Indications: STRUCTURAL HEART DISEASE Rhythm: Sinus Technical Quality: Good FINDINGS Left Ventricle Normal size left ventricle. No obvious regional wall motion abnormalities. Left ventricular wall thickness increased. Normal left ventricular ejection fraction estimated at 60-65%. Right Ventricle Right ventricle at upper limits of normal. Right Atrium Normal right atrial size. Left Atrium Mild left atrial dilatation. Mitral Valve Mitral valve thickened. Trace to mild mitral regurgitation. Aortic Valve Trileaflet aortic valve. Focal thickening of the aortic valve cusps. No aortic stenosis. No aortic regurgitation. Tricuspid Valve Tricuspid valve not well visualized, grossly normal. Moderate tricuspid regurgitation. Right ventricular systolic pressure estimated at 20 mmHg. Pulmonic Valve Pulmonic valve not well visualized, grossly normal. Pericardium No pericardial effusion. Great Vessels Aortic root and proximal ascending aorta not well visualized, grossly normal. CONCLUSIONS 1. Minimal to mild aortic sclerosis is present with no valvular stenosis or insufficiency. 2. Mitral leaflet thickening is present with minimal to mild mitral insufficiency and mild left atrial enlargement. 3. There is no pericardial fluid present. 4. The left ventricular chamber size is normal with mild concentric hypertrophy and a normal ejection fraction with no resting wall motion abnormalities. 5. The right heart chambers are upper normal in size. Moderate eccentric tricuspid insufficiency is present with no evidence of pulmonary hypertension 6. The descending thoracic aorta appears prominent but was not optimally visualized. If clinically indicated, a CT scan of the chest would be better suited to assess the anatomy of the thoracic aorta. Sonia Sweeney M.D. (Electronically Signed) Final Date: 15 June 2016 17:01 MEASUREMENTS (Male / Female) Normal Values 2D ECHO LV Diastolic Diameter PLAX 4.4 cm 4.2 - 5.9 / 3.9 - 5.3 cm LV Systolic Diameter PLAX 2.5 cm 2.1 - 4.0 cm LV Fractional Shortening PLAX 43.2 % 25 - 46 % LV Ejection Fraction 2D Teich 74.5 % IVS Diastolic Thickness 1.3 cm LVPW Diastolic Thickness 1.3 cm LV Relative Wall Thickness 0.6 RV Internal Dim ED PLAX 3.0 cm 1.9 - 3.8 cm LVOT Diameter 2.2 cm Aortic Root Diameter 3.0 cm LA Systolic Diameter LX 3.1 cm 3.0 - 4.0 / 2.7 - 3.8 cm LA Volume 42.9 cm 18 - 58 / 22 - 52 cm LA Volume Index 19.3 cm/m 16 - 28 cm/m Ascending Aorta Diameter 3.1 cm DOPPLER AV Peak Velocity 160.0 cm/s AV Peak Gradient 10.2 mmHg AV Mean Velocity 110.0 cm/s AV Mean Gradient 6.0 mmHg AV Velocity Time Integral 36.6 cm LVOT Peak Velocity 103.0 cm/s LVOT Peak Gradient 4.2 mmHg LVOT Mean Velocity 69.1 cm/s LVOT Mean Gradient 2.0 mmHg LVOT Velocity Time Integral 21.6 cm LVOT Stroke Volume 82.1 cm AV Area Cont Eq vti 2.2 cm AV Area Cont Eq pk 2.4 cm MV Peak Velocity 75.6 cm/s MV Peak Gradient 2.3 mmHg MV Mean Velocity 41.9 cm/s MV Mean Gradient 1.0 mmHg Mitral E Point Velocity 65.2 cm/s Mitral A Point Velocity 54.3 cm/s Mitral E to A Ratio 1.2 MV PHT Velocity 72.5 cm/s MV Deceleration [place] 220.0 cm/s MV Pressure Half Time 98.9 ms MV Area PHT 2.2 cm MV Deceleration Time 204.0 ms TR Peak Velocity 252.0 cm/s TR Peak Gradient 25.4 mmHg Right Atrial Pressure 5.0 mmHg Pulmonary Artery Systolic Pressu 30.4 mmHg Right Ventricular Systolic Press 30.4 mmHg PV Peak Velocity 81.6 cm/s PV Peak Gradient 2.7 mmHg PV Mean Velocity 54.7 cm/s PV Mean Gradient 1.0 mmHg PV Velocity Time Integral 21.1 cm LV E' Lateral Velocity 10.9 cm/s Mitral E to LV E' Lateral Ratio 6.0 LV E' Septal Velocity 15.9 cm/s Mitral E to LV E' Septal Ratio 4.1
[2016-06-15 22:00] VITALS: BP 170/70
--- NOTE | 2016-06-15 23:40 | RADIOLOGY REPORT ---
EXAMINATION: CHEST 1 VIEW CLINICAL INFORMATION: Fever. COMPARISON: None. TECHNIQUE: An AP view of the chest is provided. FINDINGS: The cardiac silhouette is not enlarged. The mediastinal and hilar contours are unremarkable. There are neither pleural effusions nor pneumothoraces. There are no consolidations. The osseous structures are unremarkable. IMPRESSION: No evidence for acute disease.
[2016-06-16 00:25] VITALS: BP 147/75
--- NOTE | 2016-06-16 05:53 | PN- Orthopedic ---
Subjective Subjective: Patient without significant complaints. She has mild pain in the right knee that is controlled with pain medication. She has been in physical therapy yesterday. She had a fever last night however no acute complaints. Chest x-ray is normal, urinalysis pending, labs pending for this morning. Objective Vital Signs and I&Os Vital Signs Date Time Temp Pulse Resp B/P Pulse O2 O2 Flow FiO2 Ox Delivery Rate 06/16 0025 99.8 147/75 06/16 0003 88 170/70 06/16 0002 100.0 06/15 2327 101.8 06/15 2324 101.8 06/15 2200 101.8 102 20 170/70 97 06/15 2132 102.7 06/15 1600 99.9 82 22 124/76 96 Room Air 06/15 1034 84 138/78 06/15 08 99.6 67 18 130/78 97 Room Air Intake & Output 06/16 0800 06/16 0000 06/15 1600 06/15 0800 06/15 0000 06/14 1600 Intake Total 240 1035 1010 1250 2300 Output Total 400 1600 160 981 7190 Balance -160 -565 160 680 650 Intake, IV 75 610 446 7303 Intake, Oral 240 960 360 600 0 Number 0 0 Bowel Movements Output, 100 120 400 Drainage Output, Urine 400 1600 271 454 0570 Physical Exam: Well-developed well-nourished no apparent distress. HEENT: Atraumatic, extraocular motion intact Neck: Supple, no lymphadenopathy Respiratory: No respiratory distress Extremities: No edema RIGHT lower extremity dressing in place, Incision line is clean dry and intact with minimal bloody drainage. No signs of infection. Mild joint effusion Range of motion is 0-60. Compression wrap in place. Dressing removed and dry sterile dressing applied. ALPS in place Neurovascularly intact distally Bilateral calves are supple, nontender. Neuro: Alert and oriented x3 Psych: Mood affect normal, normal memory normal judgment. Skin: Warm and dry, no rash on exposed skin Results Last 48 Hours of Labs: Laboratory Tests 06/16 06/16 06/15 0508 0500 0500 Chemistry Sodium (137 - 145 mmol/L) Pending 139 Potassium (3.5 - 5.1 mmol/L) Pending 3.9 Chloride (98 - 107 mmol/L) Pending 102 Carbon Dioxide (22 - 30 mmol/L) Pending 27 Anion Gap (5 - 16) Pending 10 BUN (7 - 17 mg/dL) Pending 11 Creatinine (0.5 - 1.0 mg/dL) Pending 0.9 Estimated GFR (>60 ml/min) > 60 BUN/Creatinine Ratio (7 - 25 %) Pending 12.2 Phosphorus Pending Magnesium (1.6 - 2.3 mg/dL) Pending 2.0 Troponin I (< 0.11 ng/ml) < 0.01 Hematology CBC w Diff Pending NO MAN DIFF REQ WBC (4.8 - 10.8 /CUMM) Pending 8.7 RBC (4.20 - 5.40 /CUMM) Pending 3.03 L Hgb (12.0 - 16.0 G/DL) Pending 8.6 L Hct (37 - 47 %) Pending 26.1 L MCV (81.0 - 99.0 FL) Pending 86.4 MCH (27.0 - 31.0 PG) Pending 28.3 RDW (11.5 - 14.5 %) Pending 15.2 H Plt Count (130 - 400 /CUMM) Pending 177 MPV (7.4 - 10.4 FL) Pending 9.6 Gran % (42.2 - 75.2 %) 81.1 H Lymphocytes % (20.5 - 51.1 %) 11.2 L Monocytes % (1.7 - 9.3 %) 7.3 Eosinophils % (0 - 5 %) 0.1 Basophils % (0.0 - 2.0 %) 0.3 Absolute Granulocytes (1.4 - 6.5 /CUMM) 7.1 H Absolute Lymphocytes (1.2 - 3.4 /CUMM) 1.0 L Absolute Monocytes (0.10 - 0.60 /CUMM) 0.6 Absolute Eosinophils (0.0 - 0.7 /CUMM) 0 Absolute Basophils (0.0 - 0.2 /CUMM) 0 PUBS MCHC (33.0 - 37.0 G/DL) Pending 32.8 L Urines Urine Color Pending Urine Clarity Pending Urine pH Pending Ur Specific [place] Pending Urine Protein Pending Urine Ketones Pending Urine Nitrite Pending Urine Bilirubin Pending Urine Urobilinogen Pending Ur Leukocyte Esterase Pending Ur Microscopic Pending Urine Hemoglobin Pending Urine Glucose Pending 06/14 06/14 2340 1735 Chemistry Sodium (137 - 145 mmol/L) 138 140 Potassium (3.5 - 5.1 mmol/L) 4.4 3.4 L Chloride (98 - 107 mmol/L) 102 101 Carbon Dioxide (22 - 30 mmol/L) 28 30 Anion Gap (5 - 16) 8 9 BUN (7 - 17 mg/dL) 13 11 Creatinine (0.5 - 1.0 mg/dL) 0.8 0.9 Estimated GFR (>60 ml/min) > 60 > 60 BUN/Creatinine Ratio (7 - 25 %) 16.3 12.2 Glucose (65 - 99 mg/dL) 177 H Phosphorus (2.5 - 4.5 mg/dL) 3.7 Magnesium (1.6 - 2.3 mg/dL) 1.6 Troponin I (< 0.11 ng/ml) < 0.01 < 0.01 Hematology CBC w Diff MAN DIFF ORDERED NO MAN DIFF REQ WBC (4.8 - 10.8 /CUMM) 9.1 10.1 RBC (4.20 - 5.40 /CUMM) 3.28 L 3.47 L Hgb (12.0 - 16.0 G/DL) 9.3 L 9.7 L Hct (37 - 47 %) 28.0 L 30.1 L MCV (81.0 - 99.0 FL) 85.1 86.8 MCH (27.0 - 31.0 PG) 28.2 27.9 RDW (11.5 - 14.5 %) 15.1 H 14.8 H Plt Count (130 - 400 /CUMM) 190 192 MPV (7.4 - 10.4 FL) 9.2 8.7 Gran % (42.2 - 75.2 %) 89.9 H 94.5 H Lymphocytes % (20.5 - 51.1 %) 6.9 L 3.3 L Monocytes % (1.7 - 9.3 %) 3.0 2.1 Eosinophils % (0 - 5 %) 0.1 0.1 Basophils % (0.0 - 2.0 %) 0.1 0 L Absolute Granulocytes (1.4 - 6.5 /CUMM) 8.2 H 9.5 H Absolute Lymphocytes (1.2 - 3.4 /CUMM) 0.6 L 0.3 L Absolute Monocytes (0.10 - 0.60 /CUMM) 0.3 0.2 Absolute Eosinophils (0.0 - 0.7 /CUMM) 0 0 Absolute Basophils (0.0 - 0.2 /CUMM) 0 0 Platelet Estimate (ADEQUATE) ADEQUATE Polychromasia 1+ Hypochromic-Microcytic 1+ PUBS MCHC (33.0 - 37.0 G/DL) 33.1 32.1 L 06/14 06/14 06/14 1730 1551 1540 Chemistry Sodium Cancelled Potassium Cancelled Chloride Cancelled Carbon Dioxide Cancelled Anion Gap Cancelled BUN Cancelled Creatinine Cancelled BUN/Creatinine Ratio Cancelled Troponin I Cancelled Cancelled Hematology CBC w Diff Cancelled WBC Cancelled RBC Cancelled Hgb Cancelled Hct Cancelled MCV Cancelled MCH Cancelled RDW Cancelled Plt Count Cancelled MPV Cancelled PUBS MCHC Cancelled Assessment/Plan Assessment/Plan 70yoF POD 21 sp R TKR, tele hold in ICU following rapid response postop for unresponsiveness, abnormal EKG, cardiology following -Follow up results of urinalysis due to postoperative fever, no signs of infection noted in the operative knee -am labs pdg -Nothing by mouth this morning for stress test per cardiology, appreciate cardiology input - May resume regular diet after stress test this morning - prn pain meds - OOB as tolerated, PT - eliquis -Daily dressing changes, dry sterile dressing -Continue ALPS - Patient stable from an orthopedic perspective. Core Measures/Miscellaneous Venous Thromboembolism VTE Risk Factors: Age > 40, Surgery VTE Contraindications: No Contraindications VTE Diagnosis: No VTE Type: NONE VTE Confirmed by (Test): NONE Beta Terrell Is Beta Terrell a Home Med? No Antibiotics Is Patient on Antibiotics? Yes If Yes: prophylaxis
[2016-06-16 06:00] VITALS: BP 110/74
[2016-06-16 06:02] LABS: ABSOLUTE BASOPHIL COUNT 0 /CUMM (0.0-0.2); ABSOLUTE EOSINOPHIL COUNT 0 /CUMM (0.0-0.7); ABSOLUTE GRANULOCYTE CT 9.4 /CUMM (1.4-6.5); ABSOLUTE LYMPH COUNT 1.6 /CUMM (1.2-3.4); ABSOLUTE MONOCYTE COUNT 0.9 /CUMM (0.10-0.60); BASOPHIL % 0 % (0.0-2.0); EOSINOPHIL % 0 % (0-5); GRANULOCYTE % 79.4 % (42.2-75.2); HEMATOCRIT 24.1 % (37-47); MEAN CORPUSCULAR HGB 28.4 PG (27.0-31.0); MEAN CORPUSCULAR HGB CONC 32.8 G/DL (33.0-37.0); MEAN CORPUSCULAR VOLUME 86.5 FL (81.0-99.0); MEAN PLATELET VOLUME 9.4 FL (7.4-10.4); PLATELET COUNT 176 /CUMM (130-400); RBC DISTRIBUTION WIDTH 15.3 % (11.5-14.5); RED BLOOD CELL CT 2.79 /CUMM (4.20-5.40); WHITE BLOOD CELL COUNT 11.8 /CUMM (4.8-10.8)
--- NOTE | 2016-06-16 08:02 | PN- Resident CRCU ---
LESLEY SADLER,SANDY 06/16/16 0802: Subjective HPI/CRCU Issues: Ms. Mesa was seen and examined this morning. She is resting comfortably in bed. Patient states that she is currently comfortable although endorses right- sided knee pain. Pain is currently rated at a 5 out of 10 in severity. She does state that her pain is well controlled and would not like any additional pain medications. Patient denies any fever, chills, nausea, vomiting. She is currently nothing by mouth and is scheduled for a stress test this morning. 24 Hour Events: Temp: 101.8 Objective Vital Signs & I&O Last 8 Hrs of Vitals and I&O: Temperature 99.0 Pulse 74 Respiratory rate 20 Blood pressure 110/74 Pulse ox 98% on room Air Exam General Appearance: well developed/nourished, no apparent distress, alert, awake , comfortable Head: atraumatic, normal appearance Gastrointestinal: normal bowel sounds, soft, non-tender Extremities: normal inspection Cranial Nerves: normal hearing, normal speech Current Medications: Current Medications Sig/Robbin Start time Last Medication Dose Route Stop Time Status Admin Acetaminophen 650 MG .STK-MED ONE 06/15 2130 DC PO 06/15 213 Acetaminophen 650 MG Q4P PRN 06/14 1415 AC 06/15 PO 2132 Amlodipine Besylate 10 MG DAILY 06/15 2245 AC 06/16 PO 0003 Apixaban 2.5 MG BID 06/15 1000 AC 06/16 PO 0917 Benzocaine/Menthol 1 CARY Q2P PRN 06/14 2145 AC 06/14 PO 2356 Dipyridamole 60 MG ONE ONE 06/16 1100 DC Dextrose/Water 28 ML IV 06/16 1129 Docusate Sodium 100 MG BID 06/14 2200 AC 06/16 PO 0917 Ferrous Sulfate 325 MG DAILY 06/15 1000 AC 06/16 PO 0917 Hydromorphone HCl 2 MG Q4P PRN 06/14 1415 AC PO Hydromorphone HCl 4 MG Q4P PRN 06/14 1415 AC 06/16 PO 0512 Hydroxychloroquine 200 MG DAILY 06/15 1000 AC 06/16 Sulfate PO 0916 Ibuprofen 400 MG ONCE ONE 06/15 2315 DC 06/15 PO 06/15 2316 2327 Ketorolac 15 MG Q8P PRN 06/14 1415 AC 06/15 Tromethamine IV 06/17 1407 1403 Lisinopril 40 MG DAILY 06/15 1000 AC 06/15 PO 1034 Morphine Sulfate 2 MG Q2P PRN 06/14 1415 AC 06/15 IV 0315 Omeprazole 40 MG DAILY AC 06/15 0700 AC PO Ondansetron HCl 4 MG Q6P PRN 06/14 1415 AC 06/14 IV 1448 Polyethylene Glycol 17 GM DAILY 06/15 1000 AC 06/16 PO 1716 Potassium Chloride 20 MEQ ONCE ONE 06/16 0930 DC 06/16 PO 06/16 0931 0940 Potassium Chloride 40 MEQ ONCE ONE 06/16 0845 CAN PO 06/16 0846 Potassium Chloride 20 MEQ DAILY 06/15 1000 AC 06/16 PO 0917 Prednisone 5 MG DAILY 06/15 1000 AC 06/16 PO 0916 Promethazine HCl 12.5 MG Q6P PRN 06/14 1415 AC IV 06/21 1044 Ropivacaine 500 ML ONCE ONE 06/14 0930 DC 06/14 ON-Q Ball 1 BAG INJ 06/16 0309 1416 Sodium Chloride 1,000 ML ONCE ONE 06/15 2345 DC 06/15 IV 06/16 0944 2356 Impression/Plan Impression/Problem List Impression: Ms Mesa is a 70-year-old lady with past medical history of lupus and hypertension who was admitted and underwent a right total knee replacement. Intraoperatively following an episode of hypertension and requiring pushes of IV hydralazine and Lopressor resulted in a period of hypotension. A rapid response was called and the patient was subsequently transferred to telemetry [ICU hold] for further monitoring. A cardiology consult has been obtained after EKG showed T-wave inversions. #Post op hypertension; multifactorial secondary to intraoperative blood loss and subsequently receiving IV hydralazine and beta chuy pushes #Non specific borderline lateral T-wave flattening #Lupus #HTN #Negative troponins X 3 Respiratory Patient is currently on room and saturating well. ID CBC on 06/16/2016: 11.8. For now we'll continue to monitor the patient off antibiotics. Repeat CBC in a.m. Patient's currently afebrile. Cardiovascular Patient is currently nothing by mouth and is scheduled to go for a stress test today. If test results are within normal limits patient can be discharged with instructions to follow-up with cardiology service. Hematology Patient did have a fall in her H&H, fell from 8.6-7.9 and 24.1 respectively. Rule out any acute blood loss anemia. Repeat CBC has been ordered for 1400. Should the return CBC be lower than 8.0 the patient may benefit from a transfusion of 1 unit of PRBC. Alimentary Patient currently nothing by mouth once back she can be resumed on her diet. IVF: off DVT ppx Eliquis 2.5 mg BID Code full code Problem List: 1. Unilateral primary osteoarthritis, right knee Pain Ratin Tomorrow's Labs & Rationales: CBC ICU Bundle Plan DVT/Prophylaxis: mechanical Code Status: Full Code DILCIA SADLER,EDDIE 06/16/16 1136: Attending MD Review Statement Attending Sign Off Attending Cosign Statement: I have: examined this patient, reviewed [facility] EMR data, personally reviewd images, discussd w/resident/PA/AX SURVEY WORKER, discussed mgmt plan w/efe, discussed mgmt plan w/pt, agreed w/resident/PA/AX SURVEY WORKER, amended to note. Other Findings: Patient seen and examined, offers no complaints. She was willing for the stress test. She spiked fever overnight. No antibiotics were started. Urinalysis was checked which is negative. Chest x-ray also negative. This morning patient afebrile. Denies any coughing or shortness of breath. Vital Signs Date Time Temp Pulse Resp B/P Pulse O2 O2 Flow FiO2 Ox Delivery Rate 06/16 0800 98 Room Air 06/16 0600 99.0 74 20 110/74 98 Room Air 06/16 0025 99.8 147/75 06/16 0003 88 170/70 06/16 0002 100.0 06/157 101.8 06/15 2324 101.8 06/15 2200 101.8 102 20 170/70 97 06/15 2132 102.7 06/15 1600 99.9 82 22 124/76 96 Room Air on exam; aox3, nad. cv; s1, s2, rrr resp; clear b/l abd; soft, nt, bs+ ext; no edema. ms: dressing on right knee. Laboratory Tests 06/16 06/16 0508 0500 Chemistry Sodium (137 - 145 mmol/L) 137 Potassium (3.5 - 5.1 mmol/L) 3.6 Chloride (98 - 107 mmol/L) 103 Carbon Dioxide (22 - 30 mmol/L) 28 Anion Gap (5 - 16) 6 BUN (7 - 17 mg/dL) 9 Creatinine (0.5 - 1.0 mg/dL) 0.9 Estimated GFR (>60 ml/min) > 60 BUN/Creatinine Ratio (7 - 25 %) 10.0 Phosphorus (2.5 - 4.5 mg/dL) 3.7 Magnesium (1.6 - 2.3 mg/dL) 1.8 Hematology CBC w Diff NO MAN DIFF REQ WBC (4.8 - 10.8 /CUMM) 11.8 H RBC (4.20 - 5.40 /CUMM) 2.79 L Hgb (12.0 - 16.0 G/DL) 7.9 L Hct (37 - 47 %) 24.1 L MCV (81.0 - 99.0 FL) 86.5 MCH (27.0 - 31.0 PG) 28.4 RDW (11.5 - 14.5 %) 15.3 H Plt Count (130 - 400 /CUMM) 176 MPV (7.4 - 10.4 FL) 9.4 Gran % (42.2 - 75.2 %) 79.4 H Lymphocytes % (20.5 - 51.1 %) 13.1 L Monocytes % (1.7 - 9.3 %) 7.5 Eosinophils % (0 - 5 %) 0 Basophils % (0.0 - 2.0 %) 0 L Absolute Granulocytes (1.4 - 6.5 /CUMM) 9.4 H Absolute Lymphocytes (1.2 - 3.4 /CUMM) 1.6 Absolute Monocytes (0.10 - 0.60 /CUMM) 0.9 H Absolute Eosinophils (0.0 - 0.7 /CUMM) 0 Absolute Basophils (0.0 - 0.2 /CUMM) 0 PUBS MCHC (33.0 - 37.0 G/DL) 32.8 L Urines Urine Color (YEL,AMB,STR) YEL Urine Clarity (CLEAR) CLEAR Urine pH (5.0 - 8.0) 7.0 Ur Specific [place] (1.001 - 1.035) 1.015 Urine Protein (NEG,<30 MG/DL) TRACE H Urine Ketones (NEG) TRACE H Urine Nitrite (NEG) NEG Urine Bilirubin (NEG) NEG Urine Urobilinogen (0.1 - 1.0 EU/dl) 1.0 Ur Leukocyte Esterase (NEG) NEG Ur Microscopic SEDIMENT EXAMINED Urine RBC (0 - 5 /HPF) RARE Urine WBC (0 - 2 /HPF) RARE Ur Epithelial Cells (NONE,FEW) FEW Urine Bacteria (NEG/NONE) RARE H Urine Hemoglobin (NEG) NEG Urine Glucose (N MG/DL) NEG Assessment and recommendations: 70-year-old female with past medical history significant for lupus, sickle cell triat, hypertension status post right knee replacement postop day #2 today. She was transferred to ICU as a telemetry hold secondary to unresponsive episode. Her blood pressure was also not controlled. CT head was negative. EKG showed some nonspecific T-wave changes. Patient went for stress test today. Overnight spiked a fever of 102. This morning afebrile. Urinalysis was ordered which is negative. Chest x-ray also negative. Also has a drop in H&H. Recommend repeating CBC this afternoon, if continues to drop then transfuse 1 unit of RBCs. Blood pressure well controlled on current regimen. DVT Px: Eliquis. Please follow up on stress test.
--- NOTE | 2016-06-16 11:32 | PN- Cardiology ---
Subjective Subjective: The patient is doing well today. She denies any symptoms. Intermittent ventricular ectopy noted on the monitor. Objective Vital Signs and I&Os Vital Signs Date Time Temp Pulse Resp B/P Pulse O2 O2 Flow FiO2 Ox Delivery Rate 06/16 0800 98 Room Air 06/16 0600 99.0 74 20 110/74 98 Room Air 06/16 0025 99.8 147/75 06/16 0003 88 170/70 06/16 0002 100.0 06/15 2326 101.8 06/15 232 101.8 06/15 2200 101.8 102 20 170/70 97 06/15 2132 102.7 06/15 1600 99.9 82 22 124/76 96 Room Air Intake & Output 06/16 1600 06/16 0800 06/16 0000 06/15 1600 06/15 0000 Intake Total 204 308 6071 1010 1250 Output Total 867 871 0360 850 570 Balance -100 -160 -565 160 680 Intake, IV 800 75 650 650 Intake, Oral 240 960 360 600 Number 0 Bowel Movements Output, 100 120 Drainage Output, Urine 653 737 9955 750 450 Current Medications: Current Medications Sig/Robbin Start time Last Medication Dose Route Stop Time Status Admin Acetaminophen 650 MG .STK-MED ONE 06/15 2130 DC PO 06/16 2131 Acetaminophen 650 MG Q4P PRN 06/14 141 AC 06/15 PO 213 Amlodipine Besylate 10 MG DAILY 06/15 2245 AC 06/16 PO 0003 Apixaban 2.5 MG BID 06/15 1000 AC 06/16 PO 0917 Benzocaine/Menthol 1 CARY Q2P PRN 06/14 214 AC 06/14 PO 2356 Dipyridamole 60 MG ONE ONE 06/16 1100 DC Dextrose/Water 28 ML IV 06/16 1129 Docusate Sodium 100 MG BID 06/14 2200 AC 06/16 PO 0917 Ferrous Sulfate 325 MG DAILY 06/15 1000 AC 06/16 PO 0917 Hydromorphone HCl 2 MG Q4P PRN 06/14 141 AC PO Hydromorphone HCl 4 MG Q4P PRN 06/14 1415 AC 06/16 PO 0512 Hydroxychloroquine 200 MG DAILY 06/15 1000 AC 06/16 Sulfate PO 0916 Ibuprofen 400 MG ONCE ONE 06/15 2315 DC 06/15 PO 06/15 2316 2327 Ketorolac 15 MG Q8P PRN 06/14 1415 AC 06/15 Tromethamine IV 06/17 1407 1403 Lisinopril 40 MG DAILY 06/15 1000 AC 06/15 PO 1034 Morphine Sulfate 2 MG Q2P PRN 06/14 1415 AC 06/15 IV 0315 Omeprazole 40 MG DAILY AC 06/15 0700 AC PO Ondansetron HCl 4 MG Q6P PRN 06/14 1415 AC 06/14 IV 1448 Polyethylene Glycol 17 GM DAILY 06/15 1000 AC PO Potassium Chloride 20 MEQ ONCE ONE 06/16 0930 DC 06/16 PO 06/16 0931 0940 Potassium Chloride 40 MEQ ONCE ONE 06/16 0845 CAN PO 06/16 0846 Potassium Chloride 20 MEQ DAILY 06/15 1000 AC 06/16 PO 0917 Prednisone 5 MG DAILY 06/15 1000 AC 06/16 PO 0916 Promethazine HCl 12.5 MG Q6P PRN 06/14 1415 AC IV 06/21 1044 Ropivacaine 500 ML ONCE ONE 06/14 09 DC 06/14 ON-Q Ball 1 BAG INJ 06/16 0309 1416 Sodium Chloride 1,000 ML ONCE ONE 06/15 2345 DC 06/15 IV 06/16 0944 2356 Results Last 48 Hrs of Labs/Mics: Laboratory Tests 06/16/16 0508: Anion Gap 6, Estimated GFR > 60, BUN/Creatinine Ratio 10.0, Phosphorus 3.7, Magnesium 1.8, CBC w Diff NO MAN DIFF REQ, RBC 2.79 L, MCV 86.5, MCH 28.4, RDW 15.3 H, MPV 9.4, Gran % 79.4 H, Lymphocytes % 13.1 L, Monocytes % 7.5, Eosinophils % 0, Basophils % 0 L, Absolute Granulocytes 9.4 H, Absolute Lymphocytes 1.6, Absolute Monocytes 0.9 H, Absolute Eosinophils 0, Absolute Basophils 0, PUBS MCHC 32.8 L 06/16/16 0500: Urine Color YEL, Urine Clarity CLEAR, Urine pH 7.0, Ur Specific [place] 1.015, Urine Protein TRACE H, Urine Ketones TRACE H, Urine Nitrite NEG, Urine Bilirubin NEG, Urine Urobilinogen 1.0, Ur Leukocyte Esterase NEG, Ur Microscopic SEDIMENT EXAMINED, Urine RBC RARE, Urine WBC RARE, Ur Epithelial Cells FEW, Urine Bacteria RARE H, Urine Hemoglobin NEG, Urine Glucose NEG 06/15/16 0500: Anion Gap 10, Estimated GFR > 60, BUN/Creatinine Ratio 12.2, Magnesium 2.0, Troponin I < 0.01, CBC w Diff NO MAN DIFF REQ, RBC 3.03 L, MCV 86.4, MCH 28.3, RDW 15.2 H, MPV 9.6, Gran % 81.1 H, Lymphocytes % 11.2 L, Monocytes % 7.3, Eosinophils % 0.1, Basophils % 0.3, Absolute Granulocytes 7.1 H, Absolute Lymphocytes 1.0 L, Absolute Monocytes 0.6, Absolute Eosinophils 0, Absolute Basophils 0, PUBS MCHC 32.8 L 06/14/16 2340: Anion Gap 8, Estimated GFR > 60, BUN/Creatinine Ratio 16.3, Troponin I < 0.01, CBC w Diff MAN DIFF ORDERED, RBC 3.28 L, MCV 85.1, MCH 28.2, RDW 15.1 H, MPV 9.2, Gran % 89.9 H, Lymphocytes % 6.9 L, Monocytes % 3.0, Eosinophils % 0.1, Basophils % 0.1, Absolute Granulocytes 8.2 H, Absolute Lymphocytes 0.6 L, Absolute Monocytes 0.3, Absolute Eosinophils 0, Absolute Basophils 0, Platelet Estimate ADEQUATE, Polychromasia 1+, Hypochromic-Microcytic 1+, PUBS MCHC 33.1 06/14/16 1735: Anion Gap 9, Estimated GFR > 60, BUN/Creatinine Ratio 12.2, Glucose 177 H, Phosphorus 3.7, Magnesium 1.6, Troponin I < 0.01, CBC w Diff NO MAN DIFF REQ, RBC 3.47 L, MCV 86.8, MCH 27.9, RDW 14.8 H, MPV 8.7, Gran % 94.5 H, Lymphocytes % 3.3 L, Monocytes % 2.1, Eosinophils % 0.1, Basophils % 0 L, Absolute Granulocytes 9.5 H, Absolute Lymphocytes 0.3 L, Absolute Monocytes 0.2, Absolute Eosinophils 0, Absolute Basophils 0, PUBS MCHC 32.1 L 06/14/16 1730: CBC w Diff Cancelled, WBC Cancelled, RBC Cancelled, Hgb Cancelled, Hct Cancelled , MCV Cancelled, MCH Cancelled, RDW Cancelled, Plt Count Cancelled, MPV Cancelled, PUBS MCHC Cancelled 06/14/16 1551: Sodium Cancelled, Potassium Cancelled, Chloride Cancelled, Carbon Dioxide Cancelled, Anion Gap Cancelled, BUN Cancelled, Creatinine Cancelled, BUN/ Creatinine Ratio Cancelled, Troponin I Cancelled 06/14/16 1540: Troponin I Cancelled Microbiology 06/14 1600 UPPER RESP: Surveillance Culture - COMP 06/14 1600 GI: Surveillance Culture - COMP Assessment/Plan Assessment/Plan Assessment- 1. Post op hypertension; multifactorial secondary to intraoperative blood loss and subsequently receiving IV hydralazine and beta chuy pushes 2. Non specific borderline lateral T-wave flattening 3. Lupus 4. HTN 5. Negative troponins X 3. 6. Non-sustained ventricular arrhythmias Her conditions: -Continue current medication regimen. -Keep the patient on color television console monitor pending results of pharmacologic nuclear stress test. -Persantine nuclear stress test this morning. -If the stress test results are normal, the patient can be discharged home from a cardiac standpoint for further follow-up as an outpatient. Continue telemetry? Yes
--- NOTE | 2016-06-16 12:43 | IV DIPYRIDAMOLE NUCLEAR STRESS ---
Clinical Diagnosis: Abnormal EKG, R/O ischemia Specialist Physicians: Bety Foster Date of Service: 06/16/16 IV DIPYRIDAMOLE INFUSED: 60 mg IV AMINOPHYLLINE INFUSED: 125 mg PATIENT WEIGHT: 233 lbs INTERPRETATION: The patient's baseline EKG showed normal sinus rhythm; lateral ST changes at 79 BPM. Baseline B/P 130/80. The patient received 60 mg of dipyridamole infused intravenously over a 4 minute period. TC-99M or Myoview was injected after dipyridamole infusion. The patient tolerated the infusion well. There were no EKG changes seen following pharmacologic infusion. Arrhythmias: premature ventricular contractions IMPRESSION: The test was supervised by the interpreting Hand Inserter Operator, who was in attendance during the entire test. No EKG evidence of stress induced myocardial ischemia. See separately dictated Nuclear Report.
--- NOTE | 2016-06-16 17:34 | NUCLEAR MEDICINE REPORT ---
PERSANTINE STRESS AND RESTING SPECT MYOCARDIAL PERFUSION IMAGING STUDY WITH GATED SPECT IMAGES: CLINICAL INDICATION: Chest pain. PROCEDURE: Regional myocardial perfusion was assessed using a 1 day protocol. Stress images were obtained on 06/16/2016 following the intravenous administration of 27.4 mCi Tc 99m Myoview. Stress consisted of 60 mg Persantine given intravenously. Following the sestamibi injection, 125 mg aminophylline was given intravenously. Rest images were obtained 06/16/2016 following the intravenous administration of 42.0 mCi Technetium 99m Myoview. Single photon emission tomographic (SPECT) images were obtained. SPECT images were acquired in a 64 x 64 matrix of 64 projections over 180 degrees. These were reconstructed into standard short axis, horizontal and vertical long axis cardiac projections. FINDINGS: The post stress images show the left ventricular chamber to be normal in size. There is a small focus of moderately to markedly diminished activity present at the apical inferior wall. The activity in the other kline appears normal. The rest images show a homogeneous distribution of activity. In the left ventricular myocardium. A small focal perfusion defect noted in the apical inferior wall on the poststress images is not present on the rest images. Activity in the other kline appears normal and is unchanged from the post stress images. The stress images were obtained using a gated SPECT technique, which permits visualization of wall motion and calculation of the left ventricular ejection fraction. Left ventricular chamber is normal in size. No left ventricular wall motion abnormalities are noted. The calculated left ventricular ejection fraction is 57% on the stress study. No previous study is available for comparison. IMPRESSION: A small focus of reversible ischemia is present in the apical inferior wall. No other perfusion abnormalities are noted. Left ventricular wall motion and ejection fraction are normal.
[2016-06-16 17:46] LABS: MEAN CORPUSCULAR VOLUME 84.8 FL (81.0-99.0)
[2016-06-16 18:26] LABS: MEAN CORPUSCULAR HGB 28.9 PG (27.0-31.0); MEAN PLATELET VOLUME 9.7 FL (7.4-10.4); PLATELET COUNT 166 /CUMM (130-400); RBC DISTRIBUTION WIDTH 15.3 % (11.5-14.5); RED BLOOD CELL CT 2.95 /CUMM (4.20-5.40); WHITE BLOOD CELL COUNT 13.5 /CUMM (4.8-10.8)
[2016-06-16 20:46] VITALS: BP 142/73
--- NOTE | 2016-06-17 07:30 | PN- Orthopedic ---
See Addendum Subjective Subjective: Patient with hypoglycemia to 50 last night received D50 , patient asymptomatic. Knee pain is controlled, not worsening. No subjective fevers. Objective Vital Signs and I&Os Vital Signs Date Time Temp Pulse Resp B/P Pulse O2 O2 Flow FiO2 Ox Delivery Rate 06/166 100.0 73 18 142/73 06/16 1600 95 Room Air 06/16 0800 98 Room Air Intake & Output 06/17 0806/17 0000 06/16 1600 06/16 0806/16 0000 06/15 1600 Intake Total 350 350 520 825 801 6343 Output Total 250 650 600 620 317 0061 Balance 100 -300 -80 -100 -160 -565 Intake, IV 0 0 400 800 75 Intake, Oral 350 350 120 240 960 Number 0 0 0 Bowel Movements Output, Urine 250 650 600 714 898 5435 Physical Exam: Well-developed well-nourished no apparent distress. HEENT: Atraumatic, extraocular motion intact Neck: Supple, no lymphadenopathy Respiratory: No respiratory distress Extremities: No edema RIGHT lower extremity dressing in place with moderate thin serous discharge. Moderate joint effusion Incision line is without significant erythema. There is mild warmth. Does not appear to be infected. Range of motion is 0-50. Compression wrap in place. ALPS in place Neurovascularly intact distally Bilateral calves are supple, nontender. Neuro: Alert and oriented x3 Psych: Mood affect normal, normal memory normal judgment. Skin: Warm and dry, no rash on exposed skin Assessment/Plan Assessment/Plan 70yoF POD 3 sp R TKR, on tele following rapid response postop for unresponsiveness, abnormal EKG, cardiology following, had stress test yesterday -MAXIMUM TEMPERATURE 100 this morning and white count that was increasing yesterday, labs pending this morning, follow white blood cell count and fever. No obvious source. -am labs pdg -Cardiology following, had stress test yesterday, small area of reversible ischemia noted, await their recommendations. -Acute blood loss anemia, stabilized yesterday, recheck CBC this morning is pending - prn pain meds - OOB as tolerated, PT -Postop antibiotics completed - eliquis -Wound with moderate amount of serous discharge, Daily dressing changes, dry sterile dressing, done today by myself -Continue ALPS -Possible discharge to home later today with VNA services depending upon cardiology recommendations and patient labs this morning(elevated white blood cell count?) And continue monitoring for fever this afternoon. Core Measures/Miscellaneous Venous Thromboembolism VTE Risk Factors: Age > 40, Surgery VTE Contraindications: No Contraindications VTE Diagnosis: No VTE Type: NONE VTE Confirmed by (Test): NONE Beta Terrell Is Beta Terrell a Home Med? No Antibiotics Is Patient on Antibiotics? No
[2016-06-17 08:01] LABS: ABSOLUTE BASOPHIL COUNT 0 /CUMM (0.0-0.2); ABSOLUTE EOSINOPHIL COUNT 0 /CUMM (0.0-0.7); MEAN PLATELET VOLUME 9.8 FL (7.4-10.4); PLATELET COUNT 173 /CUMM (130-400); RBC DISTRIBUTION WIDTH 15.4 % (11.5-14.5)
[2016-06-17 08:06] VITALS: BP 142/64
[2016-06-17 08:35] LABS: ABSOLUTE LYMPH COUNT 2.3 /CUMM (1.2-3.4); ABSOLUTE MONOCYTE COUNT 0.5 /CUMM (0.10-0.60); BASOPHIL % 0.1 % (0.0-2.0); EOSINOPHIL % 0 % (0-5); GRANULOCYTE % 76.2 % (42.2-75.2); HEMATOCRIT 21.3 % (37-47); MEAN CORPUSCULAR HGB 28.7 PG (27.0-31.0); MEAN CORPUSCULAR HGB CONC 34.3 G/DL (33.0-37.0); MEAN CORPUSCULAR VOLUME 83.6 FL (81.0-99.0); RED BLOOD CELL CT 2.54 /CUMM (4.20-5.40); WHITE BLOOD CELL COUNT 11.9 /CUMM (4.8-10.8)
--- NOTE | 2016-06-17 13:28 | PN- Medicine Consult ---
FELISA SADLER,ROLAN 06/17/16 1309: Assessment/Plan Assessment/Plan Assessment: 70-year-old female with past medical history of lupus, sickle cell triat, hypertension right total knee replacement 06/14/2016. Now POD day 3. She underwent general anesthesia and tolerated the procedure well. Postprocedure she was transferred to the general medicine floor. s/p procedure she became unresponsive with a blood pressure of 102/58, bradycardic, T-wave inversions on EKG. Remains on telemetry following rapid response. Had a stress test yesterday which demonstrated reversible ischemia in apical inferior wall. Labs demonstrating low Hb/Hct currently transfusing 2 units, with anticoagulation stopped. Will need f/u of labs post transfusion and decision from surgery about anticoagulation. Discussed with cardiology, stable regarding small area of ischemia, would need to be placed on aspirin and b- terrell. CT head: Mild to moderate chronic white matter microangiopathy. No acute territorial infarction. The possibility of a focal acute infarct cannot be ruled out on the basis of this study. Problem list: 1. Syncope 2. Iatrogenic-induced hypotension 3. Bradycardia 4. History of lupus and sickle cell trait 5. Acute blood loss 6. Positive stress test Plan: 1. Syncope likely secondary to iatrogenic-induced hypotension * Was likely secondary to profound hypotension the setting of analgesia and preceding IV hydralazine * Blood pressure remained stable at this time * Continue to monitor. If recurrence of hypotension, consider stress dose with Solu-Medrol 2. Bradycardia * EKG NSR, nonspecific T-wave changes * On overnight cardiac telemetry monitoring patient did have one episode of 3 beat run * Electrolytes within normal limits * Resolved at this time. Continue to monitor 4. History of lupus and sickle cell trait * Continue her home medications * Continuing prednisone 5mg daily 5. Acute Blood loss anemia Transfuse to keep HH >8 Hold anticoagulation at this time Recheck HH after transfusion 6. Ischemia Discussed with cardiology no further intervention at this time Recommend starting low dose B-Terrell 6.25 BID, and 81mg aspirin once bleed is stabilized Problem List: 1. Unilateral primary osteoarthritis, right knee 2. Bradycardia 3. Hypotension 4. Ischemia 5. Acute blood loss anemia Subjective Subjective: Reports feeling well this morning no complaints. At present getting transfused blood. Review of Systems Constitutional: Reports: see HPI. Objective Last 24 Hrs of Vital Signs/I&O Vital Signs Date Time Temp Pulse Resp B/P Pulse O2 O2 Flow FiO2 Ox Delivery Rate 06/17 0959 142/64 06/17 0959 142/64 06/17 0806 99.6 90 18 64 99 Room Air 06/16 2046 100.0 73 18 142/73 06/16 1600 95 Room Air Intake & Output 06/17 1600 06/17 0800 06/17 0000 Intake Total 350 350 Output Total 250 650 Balance 100 -300 Intake, IV 0 0 Intake, Oral 350 350 Number 0 0 Bowel Movements Output, Urine 250 650 Physical Exam General Appearance: well developed/nourished, no apparent distress, alert, awake Head: atraumatic, normal appearance Neck: normal inspection, supple Cardiovascular: regular rate/rhythm Respiratory: normal breath sounds, chest non-tender, lungs clear Peripheral Pulses: 3+ radial (R), 3+ radial (L) Abdomen: normal bowel sounds, soft, non-tender Current Medications: Current Medications Sig/Robbin Start time Last Medication Dose Route Stop Time Status Admin Acetaminophen 650 MG Q4P PRN 06/14 1415 AC 06/15 PO 2132 Amlodipine Besylate 10 MG DAILY 06/15 2245 AC 06/17 PO 0959 Apixaban 2.5 MG BID 06/15 1000 DC 06/16 PO 2252 Benzocaine/Menthol 1 CARY Q2P PRN 06/14 2144 AC 06/14 PO 2356 Dextrose 25 GM ONCE ONE 06/16 2114 DC 06/16 IV 06/16 Docusate Sodium 100 MG BID 06/14 2200 AC 06/17 PO 0958 Ferrous Sulfate 325 MG DAILY 06/15 1000 AC 06/17 PO 0958 Hydromorphone HCl 2 MG Q4P PRN 06/14 1415 AC PO Hydromorphone HCl 4 MG Q4P PRN 06/14 1415 AC 06/17 PO 0654 Hydroxychloroquine 200 MG DAILY 06/15 1000 AC 06/17 Sulfate PO 0959 Ketorolac 15 MG Q8P PRN 06/14 1415 AC 06/15 Tromethamine IV 06/17 1407 1403 Lisinopril 40 MG DAILY 06/15 1000 AC 06/17 PO 0959 Morphine Sulfate 2 MG Q2P PRN 06/14 1415 AC 06/15 IV 0315 Omeprazole 40 MG DAILY AC 06/15 0700 AC PO Ondansetron HCl 4 MG Q6P PRN 06/14 1415 AC 06/14 IV 1448 Polyethylene Glycol 17 GM DAILY 06/15 1000 AC 06/17 PO 0958 Potassium Chloride 20 MEQ DAILY 06/15 1000 AC 06/17 PO 0958 Prednisone 5 MG DAILY 06/15 1000 AC 06/17 PO 0959 Promethazine HCl 12.5 MG Q6P PRN 06/14 1415 AC IV 06/21 1044 Results Last 24 Hrs Lab/Stephen Results: Laboratory Tests 06/17/16 0630: Anion Gap 6, Estimated GFR > 60, Glucose 93, Calcium 8.9, Phosphorus 3.2, Magnesium 1.8, Total Bilirubin 0.7, AST 22, ALT 27, Albumin 2.6 L, CBC w Diff NO MAN DIFF REQ, RBC 2.54 L, MCV 83.6, MCH 28.7, RDW 15.4 H, MPV 9.8, Gran % 76.2 H, Lymphocytes % 19.3 L, Monocytes % 4.4, Eosinophils % 0, Basophils % 0.1, Absolute Granulocytes 9.0 H, Absolute Lymphocytes 2.3, Absolute Monocytes 0.5, Absolute Eosinophils 0, Absolute Basophils 0, PUBS MCHC 34.3 06/16/16 2122: Glucose 99 06/16/16 1730: CBC w Diff MAN DIFF ORDERED, RBC 2.95 L, MCV 84.8, MCH 28.9, RDW 15.3 H, MPV 9.7, Segmented Neutrophils 97 H, Lymphocytes 2 L, Monocytes 1 L, Platelet Estimate ADEQUATE, Hypochromic-Microcytic 1+, Poikilocytosis 1+, Anisocytosis 2+ , PUBS MCHC 34.0 SHREYAS SADLER,STEPH 06/17/16 1406: Attending MD Review Statement Attending Sign Off Attending Cosign Statement: I have: examined this patient, reviewed al EMR data, personally reviewd images, discussd w/resident/PA/REFRIGERATION SPECIALIST, discussed mgmt plan w/efe, discussed mgmt plan w/CM, discussed mgmt plan w/pt, agreed w/resident/PA/REFRIGERATION SPECIALIST.
[2016-06-17 16:11] VITALS: BP 142/74
[2016-06-17 16:16] VITALS: BP 108/48
[2016-06-17 17:53] VITALS: BP 142/76
--- NOTE | 2016-06-17 18:59 | PN- Cardiology ---
Subjective Subjective: Stable with no new CV symptoms or issues. Objective Vital Signs and I&Os Vital Signs Date Time Temp Pulse Resp B/P Pulse O2 O2 Flow FiO2 Ox Delivery Rate 06/17 1753 99.5 88 18 142/76 99 Room Air 06/17 1611 99.1 84 18 142/74 96 Room Air 06/17 0959 142/64 06/17 0959 142/64 06/17 0806 99.6 90 18 142/64 99 Room Air 06/16 2046 100.0 73 18 142/73 Intake & Output 06/17 1600 06/17 0800 06/17 0000 06/16 1600 06/16 0800 06/16 0000 Intake Total 1070 350 350 520 800 240 Output Total 500 250 650 600 900 400 Balance 570 100 -300 -80 -100 -160 Intake, Blood 350 Product Intake, IV 0 0 400 800 Intake, Oral 720 350 350 120 240 Number 0 0 Bowel Movements Output, Urine 500 250 650 600 900 400 Current Medications: Current Medications Sig/Robbin Start time Last Medication Dose Route Stop Time Status Admin Acetaminophen 650 MG Q4P PRN 06/14 1415 AC 06/15 PO 2132 Amlodipine Besylate 10 MG DAILY 06/15 2245 AC 06/17 PO 0959 Apixaban 2.5 MG BID 06/15 1000 DC 06/16 PO 2252 Aspirin 325 MG BID 06/18 1000 AC PO Benzocaine/Menthol 1 CARY Q2P PRN 06/14 2145 AC 06/14 PO 2356 Bisacodyl 5 MG DAILY 06/17 1403 AC 06/17 PO 1730 Dextrose 25 GM ONCE ONE 06/16 2114 DC 06/16 IV 06/16 Docusate Sodium 100 MG BID 06/14 2200 AC 06/17 PO 0958 Ferrous Sulfate 325 MG DAILY 06/15 1000 AC 06/17 PO 0958 Hydromorphone HCl 2 MG Q4P PRN 06/14 1415 AC 06/17 PO 1730 Hydromorphone HCl 4 MG Q4P PRN 06/14 1415 AC 06/17 PO 0654 Hydroxychloroquine 200 MG DAILY 06/15 1000 AC 06/17 Sulfate PO 0959 Ketorolac 15 MG Q8P PRN 06/14 1415 DC 06/15 Tromethamine IV 06/17 1407 1403 Lisinopril 40 MG DAILY 06/15 1000 AC 06/17 PO 0959 Magnesium Hydroxide 30 ML ONE ONE 06/17 1415 DC PO 06/17 1416 Morphine Sulfate 2 MG Q2P PRN 06/14 1415 AC 06/15 IV 0315 Omeprazole 40 MG DAILY AC 06/15 0700 AC PO Ondansetron HCl 4 MG Q6P PRN 06/14 1415 AC 06/14 IV 1448 Polyethylene Glycol 17 GM DAILY 06/15 1000 AC 06/17 PO 0958 Potassium Chloride 20 MEQ DAILY 06/15 1000 AC 06/17 PO 0958 Prednisone 5 MG DAILY 06/15 1000 AC 06/17 PO 0959 Promethazine HCl 12.5 MG Q6P PRN 06/14 1415 AC IV 06/21 1044 Results Last 48 Hrs of Labs/Mics: Laboratory Tests 06/17/16 0630: Anion Gap 6, Estimated GFR > 60, Glucose 93, Calcium 8.9, Phosphorus 3.2, Magnesium 1.8, Total Bilirubin 0.7, AST 22, ALT 27, Albumin 2.6 L, CBC w Diff NO MAN DIFF REQ, RBC 2.54 L, MCV 83.6, MCH 28.7, RDW 15.4 H, MPV 9.8, Gran % 76.2 H, Lymphocytes % 19.3 L, Monocytes % 4.4, Eosinophils % 0, Basophils % 0.1, Absolute Granulocytes 9.0 H, Absolute Lymphocytes 2.3, Absolute Monocytes 0.5, Absolute Eosinophils 0, Absolute Basophils 0, PUBS MCHC 34.3 06/16/16 2122: Glucose 99 06/16/16 1730: CBC w Diff MAN DIFF ORDERED, RBC 2.95 L, MCV 84.8, MCH 28.9, RDW 15.3 H, MPV 9.7, Segmented Neutrophils 97 H, Lymphocytes 2 L, Monocytes 1 L, Platelet Estimate ADEQUATE, Hypochromic-Microcytic 1+, Poikilocytosis 1+, Anisocytosis 2+ , PUBS MCHC 34.0 06/16/16 0508: Anion Gap 6, Estimated GFR > 60, BUN/Creatinine Ratio 10.0, Phosphorus 3.7, Magnesium 1.8, CBC w Diff NO MAN DIFF REQ, RBC 2.79 L, MCV 86.5, MCH 28.4, RDW 15.3 H, MPV 9.4, Gran % 79.4 H, Lymphocytes % 13.1 L, Monocytes % 7.5, Eosinophils % 0, Basophils % 0 L, Absolute Granulocytes 9.4 H, Absolute Lymphocytes 1.6, Absolute Monocytes 0.9 H, Absolute Eosinophils 0, Absolute Basophils 0, PUBS MCHC 32.8 L 06/16/16 0500: Urine Color YEL, Urine Clarity CLEAR, Urine pH 7.0, Ur Specific [place] 1.015, Urine Protein TRACE H, Urine Ketones TRACE H, Urine Nitrite NEG, Urine Bilirubin NEG, Urine Urobilinogen 1.0, Ur Leukocyte Esterase NEG, Ur Microscopic SEDIMENT EXAMINED, Urine RBC RARE, Urine WBC RARE, Ur Epithelial Cells FEW, Urine Bacteria RARE H, Urine Hemoglobin NEG, Urine Glucose NEG Assessment/Plan Assessment/Plan Assessment- 1. Post op hypertension; multifactorial secondary to intraoperative blood loss and subsequently receiving IV hydralazine and beta chuy pushes 2. Non specific borderline lateral T-wave flattening 3. Lupus 4. HTN 5. Negative troponins X 3. 6. Non-sustained ventricular arrhythmias Her conditions: -Continue current medication regimen. -Keep the patient on counselor supervisor -Nuclear stress test shows a very small abnormality of questionable significance. No further work up planned for now. - OUtpatient followup with me. - Awaiting followup CBC post transfusion. Annmarie on hold. Further plans in the AM. - Agree with plans for low dose beta chuy and ASA prior to discharge Continue telemetry? Yes
[2016-06-17 22:30] VITALS: BP 142/78
[2016-06-18 06:09] LABS: ABSOLUTE BASOPHIL COUNT 0 /CUMM (0.0-0.2); ABSOLUTE EOSINOPHIL COUNT 0.1 /CUMM (0.0-0.7); ABSOLUTE GRANULOCYTE CT 9.8 /CUMM (1.4-6.5); ABSOLUTE MONOCYTE COUNT 0.7 /CUMM (0.10-0.60); BASOPHIL % 0.1 % (0.0-2.0); EOSINOPHIL % 0.8 % (0-5); GRANULOCYTE % 78.1 % (42.2-75.2); HEMATOCRIT 24.9 % (37-47); MEAN CORPUSCULAR HGB 28.8 PG (27.0-31.0); MEAN CORPUSCULAR HGB CONC 33.3 G/DL (33.0-37.0); MEAN CORPUSCULAR VOLUME 86.6 FL (81.0-99.0); MEAN PLATELET VOLUME 9.9 FL (7.4-10.4); PLATELET COUNT 170 /CUMM (130-400); RBC DISTRIBUTION WIDTH 15.1 % (11.5-14.5); RED BLOOD CELL CT 2.88 /CUMM (4.20-5.40)
[2016-06-18 06:43] LABS: WHITE BLOOD CELL COUNT 13.6 /CUMM (4.8-10.8)
--- NOTE | 2016-06-18 07:34 | PN- Orthopedic ---
See Addendum Subjective Subjective: Pt was transfused yesterday with 2U prbc's for anemia. She has been experiencing some serous drainage from her wound. Tmax last night was 100.3. Afebrile this morning. Otherwise has no major complaints. Pain is controlled. She feels that her swelling is decreasing. She is tolerating her diet and voiding well. Still awaiting BM. Denies PACHECO, dizziness, CP, SOB. Objective Vital Signs and I&Os Vital Signs Date Time Temp Pulse Resp B/P Pulse O2 O2 Flow FiO2 Ox Delivery Rate 06/17 2341 99.4 06/17 2230 99.9 97 18 142/78 96 Room Air 06/17 2128 100.3 06/17 1753 99.5 88 18 142/76 99 Room Air 06/17 1611 99.1 84 18 142/74 96 Room Air 06/17 0959 142/64 06/17 0959 142/64 06/17 0806 99.6 90 18 142/64 99 Room Air Intake & Output 06/18 0800 06/18 0000 06/17 1600 06/17 0800 06/17 0000 06/16 1600 Intake Total 800 1070 350 350 520 Output Total 500 500 250 650 600 Balance 300 570 100 -300 -80 Intake, Blood 350 350 Product Intake, IV 0 0 400 Intake, Oral 450 720 350 350 120 Number 0 0 0 Bowel Movements Output, Urine 500 500 250 650 600 Physical Exam: Gen: Pt is awake and alert. NAD. Cardiac: Regular Pulm: CTA bilaterally Abdomen: Soft and nondistended. Nontender. +BS Ext: R knee continues to drain a moderate amount of serous drainage. No purulence or surrounding erythema noted. Right Thigh is swollen down to the calf , but soft. Leg is warm, but she was covered by a lot of blankets. LE sensation is intact. Strength of DF and PF are 5/5 bilaterally. No calf tenderness is appreciated. Assessment/Plan Assessment/Plan Patient is a 70-year-old female with history of hypertension, lupus, sickle cell trait who is now postoperative day #4 status post right total knee replacement. Patient's postoperative course was complicated by a rapid response on postoperative day #0. Troponins were negative but a stress test revealed reversible ischemia. Patient has been having intermittent temps and is now experiencing some serous drainage from her wound. Plan: -Continue dry dressings daily. Dr. Vanegas will be in today to assess the wound. -Continue physical therapy. Weight-bear as tolerated. -Continue aspirin twice a day for DVT prophylaxis plus Alps when in bed. -Continue medical management per primary team. Eliquis is being held. Will start low dose B terrell as per medicine recommendations. -Appreciate cardiology input. Core Measures/Miscellaneous Venous Thromboembolism VTE Risk Factors: Age > 40, Surgery VTE Contraindications: No Contraindications VTE Diagnosis: No VTE Type: NONE VTE Confirmed by (Test): NONE Beta Terrell Is Beta Terrell a Home Med? No Antibiotics Is Patient on Antibiotics? No
[2016-06-18 07:46] VITALS: BP 130/80
[2016-06-18] MEDS ORDERED: METOPROLOL SUCC25 M1 PO (08:34)
[2016-06-18] MEDS ORDERED: ASPIRIN325 M2 PO (08:36)
--- NOTE | 2016-06-18 09:17 | PN- Medicine Consult ---
FELISA SADLER,ROLAN 06/18/16 0901: Assessment/Plan Assessment/Plan Assessment: 70-year-old female with past medical history of lupus, sickle cell triat, hypertension right total knee replacement 06/14/2016. Now POD day 3. She underwent general anesthesia and tolerated the procedure well. Postprocedure she was transferred to the general medicine floor. s/p procedure she became unresponsive with a blood pressure of 102/58, bradycardic, T-wave inversions on EKG. Remains on telemetry following rapid response. Had a stress test yesterday which demonstrated reversible ischemia in apical inferior wall. Labs demonstrating low Hb/Hct currently transfusing 2 units, with anticoagulation stopped. Will need f/u of labs post transfusion and decision from surgery about anticoagulation. Discussed with cardiology, stable regarding small area of ischemia, would need to be placed on aspirin and b- terrell. CT head: Mild to moderate chronic white matter microangiopathy. No acute territorial infarction. The possibility of a focal acute infarct cannot be ruled out on the basis of this study. Problem list: 1. Syncope 2. Iatrogenic-induced hypotension 3. Bradycardia 4. History of lupus and sickle cell trait 5. Acute blood loss 6. Positive stress test Plan: 1. Syncope likely secondary to iatrogenic-induced hypotension * Was likely secondary to profound hypotension the setting of analgesia and preceding IV hydralazine * Blood pressure remained stable at this time * Continue to monitor. If recurrence of hypotension, consider stress dose with Solu-Medrol 2. Bradycardia * EKG NSR, nonspecific T-wave changes * Overnight NSR 82-86 * Electrolytes within normal limits * Resolved at this time. Continue to monitor 4. History of lupus and sickle cell trait * Continue her home medications * Continuing prednisone 5mg daily 5. Acute Blood loss anemia Post tranfusion HH 8.3/24.9 Holding Eliquis at this time 6. Ischemia Discussed with cardiology no further intervention at this time Recommend starting low dose B-Terrell 6.25 BID, and 81mg aspirin once bleed is stabilized 7. Low grade Temperature Tmax 100.2, WBC 13.6 Serous drainage from site, surgeon to evaluate 8. Constipation continue bowel regimen, milk of magnesium given today Problem List: 1. Acute blood loss anemia 2. Hypotension 3. Ischemia 4. Knee joint replacement status Subjective Subjective: Feels well this morning. Eating well, however no bowel movement for several days. Normally goes every day. Denies abdominal discomfort. Review of Systems Constitutional: Reports: no symptoms, see HPI. Objective Last 24 Hrs of Vital Signs/I&O Vital Signs Date Time Temp Pulse Resp B/P Pulse O2 O2 Flow FiO2 Ox Delivery Rate 06/18 0904 124/88 06/18 0903 124/88 06/18 0746 99.4 89 16 130/80 98 Room Air 06/17 2341 99.4 06/17 2230 99.9 97 18 142/78 96 Room Air 06/17 2128 100.3 06/17 1753 99.5 88 18 142/76 99 Room Air 06/17 1611 99.1 84 18 142/74 96 Room Air 06/17 0959 142/64 06/17 0959 14264 Intake & Output 06/18 1600 06/18 0800 06/18 0000 Intake Total 350 800 Output Total 550 500 Balance -200 300 Intake, Blood 350 Product Intake, IV 0 Intake, Oral 350 450 Number 0 0 Bowel Movements Output, Urine 550 500 Physical Exam General Appearance: well developed/nourished, no apparent distress, alert, awake , comfortable Head: atraumatic, normal appearance Neck: supple Cardiovascular: regular rate/rhythm Respiratory: normal breath sounds, quiet respiration, lungs clear Peripheral Pulses: 3+ radial (R) Abdomen: normal bowel sounds, soft, non-tender Extremities: swelling (right leg) Current Medications: Current Medications Sig/Robbin Start time Last Medication Dose Route Stop Time Status Admin Acetaminophen 650 MG .STK-MED ONE 06/17 2126 DC PO 06/18 2127 Acetaminophen 650 MG Q4P PRN 06/14 1415 AC 06/17 PO 2127 Amlodipine Besylate 10 MG DAILY 06/15 2245 AC 06/18 PO 0903 Apixaban 2.5 MG BID 06/15 1000 DC 06/16 PO 2252 Aspirin 325 MG BID 06/18 1000 AC 06/18 PO 0902 Benzocaine/Menthol 1 CARY Q2P PRN 06/14 2145 AC 06/14 PO 2356 Bisacodyl 5 MG DAILY 06/17 1403 AC 06/18 PO 0902 Docusate Sodium 100 MG BID 06/14 2200 AC 06/18 PO 0902 Ferrous Sulfate 325 MG DAILY 06/15 1000 AC 06/18 PO 0902 Hydromorphone HCl 2 MG Q4P PRN 06/14 1415 AC 06/17 PO 1730 Hydromorphone HCl 4 MG Q4P PRN 06/14 1415 AC 06/18 PO 0524 Hydroxychloroquine 200 MG DAILY 06/15 1000 AC 06/18 Sulfate PO 0903 Ketorolac 15 MG Q8P PRN 06/14 1415 DC 06/15 Tromethamine IV 06/17 1407 1403 Lisinopril 40 MG DAILY 06/15 1000 AC 06/18 PO 0904 Magnesium Hydroxide 30 ML ONE ONE 06/17 1415 DC 06/18 PO 06/17 1416 0901 Metoprolol Tartrate 6.25 MG BID 06/18 1000 AC PO Morphine Sulfate 2 MG Q2P PRN 06/14 1415 AC 06/15 IV 0315 Omeprazole 40 MG DAILY AC 06/15 0700 AC PO Ondansetron HCl 4 MG Q6P PRN 06/14 1415 AC 06/14 IV 1448 Polyethylene Glycol 17 GM DAILY 06/15 1000 AC 06/18 PO 0904 Potassium Chloride 20 MEQ DAILY 06/15 1000 AC 06/18 PO 0902 Prednisone 5 MG DAILY 06/15 1000 AC 06/18 PO 0903 Promethazine HCl 12.5 MG Q6P PRN 06/14 1415 AC IV 06/21 1044 Results Last 24 Hrs Lab/Stephen Results: Laboratory Tests 06/18/16 0530: CBC w Diff MAN DIFF ORDERED, RBC 2.88 L, MCV 86.6, MCH 28.8, RDW 15.1 H, MPV 9.9, Gran % 78.1 H, Lymphocytes % 15.6 L, Monocytes % 5.4, Eosinophils % 0.8, Basophils % 0.1, Absolute Granulocytes 9.8 H, Segmented Neutrophils 70, Band Neutrophils 4, Absolute Lymphocytes 2.0, Lymphocytes 20 L, Monocytes 6, Absolute Monocytes 0.7 H, Absolute Eosinophils 0.1, Absolute Basophils 0, Platelet Estimate ADEQUATE, Normocytic RBCs VERIFIED, Polychromasia 1+, Hypochromic-Microcytic 2+, Poikilocytosis 1+, Anisocytosis 2+, PUBS MCHC 33.3, Fld Total RBCs Counted 100 STEPH PRITCHETT MD 06/18/16 1315: Attending MD Review Statement Attending Sign Off Attending Cosign Statement: I have: examined this patient, reviewed [facility] EMR data, personally reviewd images, discussd w/resident/PA/SENSITIZED PAPER TESTER, discussed mgmt plan w/efe, discussed mgmt plan w/CM, discussed mgmt plan w/pt, agreed w/resident/PA/SENSITIZED PAPER TESTER, amended to note. Other Findings: Pt is sitting comfortably in the recliner. Physical exam-Rt LE edema +nt, Dressing in place. No signs of infection. Pulses intact. Patient recieved 2PRBC yesterday, but the rise in Hb is not appropriate, ? ongoing serosanginous discharge. If the plan is to discharge the patient, would recommend to check CBC in 2days, to make sure her H/H is stable. Follow up with Cardiology as an outpatient.
--- NOTE | 2016-06-18 10:18 | PN- Orthopedic ---
Surgical Brief Attending Note Brief Attending Note: Events noted. Feels well. Incision intact. Slight serous drainage. ASA for DVT ppx. Dry dressing at all times. Appreciate cardiology care.
[2016-06-18] MEDS ORDERED: METOPROLOL TART25 M1 PO (10:41)
[2016-06-18 11:14] VITALS: BP 130/80
--- NOTE | 2016-06-18 13:18 | PN- Cardiology ---
Subjective Subjective: Clinically stable from a cardiac standpoint with no new symptoms or obvious issues. Test results reviewed with the patient. Objective Vital Signs and I&Os Vital Signs Date Time Temp Pulse Resp B/P Pulse O2 O2 Flow FiO2 Ox Delivery Rate 06/18 1114 130/80 06/18 0904 124/88 06/18 0903 124/88 06/18 0746 99.4 89 16 130/80 98 Room Air 06/17 2341 99.4 06/17 2230 99.9 97 18 142/78 96 Room Air 06/17 2128 100.3 06/17 1753 99.5 88 18 142/76 99 Room Air 06/17 1611 99.1 84 18 142/74 96 Room Air Intake & Output 06/18 1600 06/18 0800 06/18 0000 06/17 1600 06/17 0800 06/17 0000 Intake Total 733 972 6339 350 350 Output Total 550 500 500 250 650 Balance -200 300 570 100 -300 Intake, Blood 350 350 Product Intake, IV 0 0 0 Intake, Oral 350 450 720 350 350 Number 0 0 0 0 Bowel Movements Output, Urine 550 500 500 250 650 Current Medications: Current Medications Sig/Robbin Start time Last Medication Dose Route Stop Time Status Admin Acetaminophen 650 MG .STK-MED ONE 06/17 2126 DC PO 06/18 2127 Acetaminophen 650 MG Q4P PRN 06/14 1415 AC 06/17 PO 2127 Amlodipine Besylate 10 MG DAILY 06/15 2245 AC 06/18 PO 0903 Aspirin 325 MG BID 06/18 1000 AC 06/18 PO 0902 Benzocaine/Menthol 1 CARY Q2P PRN 06/14 2145 AC 06/14 PO 2356 Bisacodyl 5 MG DAILY 06/17 1403 AC 06/18 PO 0902 Docusate Sodium 100 MG BID 06/14 2200 AC 06/18 PO 0902 Ferrous Sulfate 325 MG DAILY 06/15 1000 AC 06/18 PO 0902 Hydromorphone HCl 2 MG Q4P PRN 06/14 1415 AC 06/17 PO 1730 Hydromorphone HCl 4 MG Q4P PRN 06/14 1415 AC 06/18 PO 0524 Hydroxychloroquine 200 MG DAILY 06/15 1000 AC 06/18 Sulfate PO 0903 Ketorolac 15 MG Q8P PRN 06/14 1415 DC 06/15 Tromethamine IV 06/17 1407 1403 Lisinopril 40 MG DAILY 06/15 1000 AC 06/18 PO 0904 Magnesium Hydroxide 30 ML ONE ONE 06/17 1415 DC 06/18 PO 06/17 1416 0901 Metoprolol Tartrate 6.25 MG BID 06/18 1000 AC 06/18 PO 1114 Morphine Sulfate 2 MG Q2P PRN 06/14 1415 AC 06/15 IV 0315 Omeprazole 40 MG DAILY AC 06/15 0700 AC PO Ondansetron HCl 4 MG Q6P PRN 06/14 1415 AC 06/14 IV 1448 Polyethylene Glycol 17 GM DAILY 06/15 1000 AC 06/18 PO 0904 Potassium Chloride 20 MEQ DAILY 06/15 1000 AC 06/18 PO 0902 Prednisone 5 MG DAILY 06/15 1000 AC 06/18 PO 0903 Promethazine HCl 12.5 MG Q6P PRN 06/14 1415 AC IV 06/21 1044 Results Last 48 Hrs of Labs/Mics: Laboratory Tests 06/18/16 0530: CBC w Diff MAN DIFF ORDERED, RBC 2.88 L, MCV 86.6, MCH 28.8, RDW 15.1 H, MPV 9.9, Gran % 78.1 H, Lymphocytes % 15.6 L, Monocytes % 5.4, Eosinophils % 0.8, Basophils % 0.1, Absolute Granulocytes 9.8 H, Segmented Neutrophils 70, Band Neutrophils 4, Absolute Lymphocytes 2.0, Lymphocytes 20 L, Monocytes 6, Absolute Monocytes 0.7 H, Absolute Eosinophils 0.1, Absolute Basophils 0, Platelet Estimate ADEQUATE, Normocytic RBCs VERIFIED, Polychromasia 1+, Hypochromic-Microcytic 2+, Poikilocytosis 1+, Anisocytosis 2+, PUBS MCHC 33.3, Fld Total RBCs Counted 100 06/17/16 0630: Anion Gap 6, Estimated GFR > 60, Glucose 93, Calcium 8.9, Phosphorus 3.2, Magnesium 1.8, Total Bilirubin 0.7, AST 22, ALT 27, Albumin 2.6 L, CBC w Diff NO MAN DIFF REQ, RBC 2.54 L, MCV 83.6, MCH 28.7, RDW 15.4 H, MPV 9.8, Gran % 76.2 H, Lymphocytes % 19.3 L, Monocytes % 4.4, Eosinophils % 0, Basophils % 0.1, Absolute Granulocytes 9.0 H, Absolute Lymphocytes 2.3, Absolute Monocytes 0.5, Absolute Eosinophils 0, Absolute Basophils 0, PUBS MCHC 34.3 06/16/16 2122: Glucose 99 06/16/16 1730: CBC w Diff MAN DIFF ORDERED, RBC 2.95 L, MCV 84.8, MCH 28.9, RDW 15.3 H, MPV 9.7, Segmented Neutrophils 97 H, Lymphocytes 2 L, Monocytes 1 L, Platelet Estimate ADEQUATE, Hypochromic-Microcytic 1+, Poikilocytosis 1+, Anisocytosis 2+ , PUBS MCHC 34.0 Assessment/Plan Assessment/Plan Assessment- 1. Post op hypertension; multifactorial secondary to intraoperative blood loss and subsequently receiving IV hydralazine and beta chuy pushes 2. Non specific borderline lateral T-wave flattening 3. Lupus 4. HTN 5. Negative troponins X 3. 6. Non-sustained ventricular arrhythmias Her conditions: -Continue current medication regimen. -Keep the patient on air sampling and monitoring -Nuclear stress test shows a very small abnormality of questionable significance. No further work up planned for now. - OUtpatient followup with me. -From a cardiac standpoint, the patient is stable for discharge. Continue as per the medical and surgical teams. Continue telemetry? No
== END 2016-06-18 15:50 | disposition home health service (06) | DRG 470 ==
LOC: ENRESERVTM → ENRESERVDT → 1NO 01:08 → CRI 01:08 → ENPENDDIS 01:08 → SDA 01:08 → EDBD 07:00 → 2NA 13:48 → CRI 15:56 → 1NO 06-16 20:05
PROVIDERS: Physician Assistant; Physician Assistant Surgical; Student in an Organized Health Care Education/Training Program; ADMIT Orthopaedic Surgery
PROC: 0SRC0J9 Replacement of Right Knee Joint with Synthetic Substitute, Cemented, Open Approach (ICD-10-PCS; principal; 2016-06-14)
PROC: 30233N1 Transfusion of Nonautologous Red Blood Cells into Peripheral Vein, Percutaneous Approach (ICD-10-PCS; 2016-06-17)
DX: M17.11 Unilateral primary osteoarthritis, right knee (principal); M32.9 Systemic lupus erythematosus, unspecified; D62 Acute posthemorrhagic anemia; I10 Essential (primary) hypertension; Z86.718 Personal history of other venous thrombosis and embolism; D50.8 Other iron deficiency anemias; D57.3 Sickle-cell trait; Z79.52 Long term (current) use of systemic steroids; I73.00 Raynaud's syndrome without gangrene; E55.9 Vitamin D deficiency, unspecified; R00.1 Bradycardia, unspecified; I95.81 Postprocedural hypotension; R55 Syncope and collapse; E16.2 Hypoglycemia, unspecified; I99.8 Other disorder of circulatory system
CPT/HCPCS: 1NSP; CCU; 36415; 78452; 81001; 82436; 86920; 87040; 87086; 88305; 93005; 93010; 93016; 93017; 93306; 94799; 97110-GO; 97116-GO; 97161-GP; 97530-GO; A9502; C1713; J0690; J1245; J2310; J2405; J2550; J2795; J7042; J7512; P9016